=== PATIENT | male | born 1950 | race Caucasian/White ===

== ENCOUNTER 2018-04-19 14:46 | Emergency (ER) | payer MEDICARE, SELFPAY ==
[2018-04-19 14:48] VITALS: BP 156/91; PULSE 107; RESP 18; TEMP 37; O2SAT 97; BMI 33.7
[2018-04-19 15:40] LABS: Bedside Glucose 405 mg/dL (70-110)
[2018-04-19] MEDS: 0.9% Normal Saline 1,000 ML 1000 ML IV ×2 (15:59)
[2018-04-19 16:11] LABS: Absolute Lymphocyte Count 1.69 X10^3/ul (0.83-4.51); Absolute Neutrophil Count 4.8 X10^3/uL (2.0-7.7); Basophil# 0.02 X10^3/uL; Basophil% 0.3 % (0-1); Eosinophil# 0.05 X10^3/uL; Eosinophils% 0.7 % (0-5); Hematocrit 44.6 % (40-54); Hemoglobin 15.4 g/dl (13.0-16.5); Lymphocyte # 1.69 X10^3/ul (4.0); Lymphocyte % 22.8 % (19-41); Mean Corp Hgb Conc 34.5 g/gl (32-36); Mean Corpuscular Volume 92.7 fL (80-94); Mean Platelet Vol. 10.3 fl (6.2-12.0); Monocyte# 0.75 X10^3/uL; Monocyte% 10.1 % (0-10); Neutrophil # 4.84 X10^3/uL (2.7-7.7); Neutrophil % 65.2 % (47-70); Platelet Count 241 K/mm3 (150-450); RBC Distribution Width CV 12.4 % (11.6-14.6); RBC Distribution Width SD 41.9 fl (35.1-43.9); Red Blood Count 4.81 M/mm3 (4.6-6.2); White Blood Count 7.4 K/mm3 (4.4-11.0)
[2018-04-19 16:14] LABS: POSITIVE COUNT NO; POSITIVE DIFFERENTIAL NO; POSITIVE MORPHOLOGY NO
[2018-04-19 16:24] LABS: Anion Gap 9 (5-15); BUN 19 mg/dL (7-18); BUN/Creat Ratio 19.1 RATIO (10-20); Calcium,Total 9.8 mg/dL (8.5-10.1); Chloride 97 mmol/L (98-107); Creatinine, Serum 0.99 mg/dL (0.70-1.30); EST Glomerular Filtration Rate 80 mL/min (>60); Est Glom Filt Rate - Afr Amer 97 mL/min (>60); Glucose 395 mg/dL (74-106); Potassium 4.6 mmol/L (3.5-5.1); Sodium Level 133 mmol/L (136-145)
[2018-04-19 16:33] LABS: Hemoglobin A1c 13.3 % (4.2-6.3)
--- NOTE | 2018-04-19 16:56 | ED.VISSUMM ---
- ER Visit Summary Date of Service: 04/19/18 Chief Complaint: Elevated blood sugar History of Present Illness: The patient is a 68 M who presents with elevated blood sugar. He does note of the past couple of months he has had polyuria and polydipsia as well as some weight loss. He attributed this to the fact that he was working outside working on a porch during the summer. He was at a work physical today and they noted glucose in his urine so he had a fingerstick glucose which was 460. He was sent here for further evaluation. He denies any pain nausea vomiting diarrhea. Physical Examination: Afebrile heart rate 107 vitals otherwise unremarkable Neck supple Heart regular rhythm tachycardia Lungs are clear Abdomen soft nontender nondistended Alert Test Results: CBC normal. BMP notable for glucose 395 BUN 19 normal anion gap. Hemoglobin A1c 13.3. Emergency Department Course and Treatment: She was treated with IV fluids. I spoke to his primary care physician, Dr. Lazarus Bey iii. We will start the patient on metformin twice daily and have him follow-up in the office. He understands return for new or worsening symptoms. He was instructed on specific signs and symptoms to monitor for and was discharged home in good condition. Treatment Plan: [] Disposition: Discharge Impression: New onset diabetes Hyperglycemia This note was generated with [facility] dictation software. It may contain incorrect words, spelling, and punctuation that were not noted in review of the chart prior to signing ED Disposition - Plan for ED Patient: Chief Complaint: Hyperglycemia Referrals: Lazarus Bey III, MD [Primary Care Provider] -
--- NOTE | 2018-04-19 16:58 | ED.DEP ---
ED Disposition - Plan for ED Patient: Chief Complaint: Hyperglycemia Instructions: ED Hyperglycemia Diabetic Prescriptions: Metformin HCl 500 mg PO BID #60 tab Referrals: Lazarus Bey III, MD [Primary Care Provider] -
[2018-04-19 17:05] VITALS: BP 145/94; PULSE 85; RESP 18; O2SAT 100
== END 2018-04-19 17:06 | disposition home or self-care (01) ==
LOC: ED 15:52
PROVIDERS: Emergency Provider Emergency Medicine; Family Provider Family Medicine; PCP Family Medicine
DX: E11.65 Type 2 diabetes mellitus with hyperglycemia (principal)
CPT/HCPCS: 80048; 82962; 83036; 85025; 96360; 99283; J7030

== ENCOUNTER 2018-04-20 22:33 | Emergency (ER) | payer MEDICARE, SELFPAY ==
[2018-04-20 22:34] VITALS: BP 159/106; PULSE 91; RESP 16; TEMP 37.1; O2SAT 98; BMI 35.8
[2018-04-20 22:55] LABS: Bedside Glucose > 500 mg/dL (70-110)
--- NOTE | 2018-04-20 22:59 | ED.DCSUM_ITS ---
- ER Visit Summary Date of Service: 04/20/18 Chief Complaint: Elevated blood glucose History of Present Illness: The patient is a 68 M presents to the emergency department with elevated blood glucose. Patient is new onset diabetes. He was actually diagnosed yesterday. He was seen here in the emergency department. He was given fluids, and his care was discussed with his primary care physician , Dr. Gifford. The patient was placed on metformin, 500 mg twice a day. He states that he went to the pharmacy today and got set up with a glucometer. His initial blood sugar was 530. He took it again tonight and it is read high. He does admit to increased thirst and increased urination, but states he has had the symptoms for about a month. He was instructed by the pharmacy to come in for further evaluation. He denies abdominal pain. He denies any other systemic symptoms. Physical Examination: Vital signs reviewed General: Well-nourished, well-developed Head: Normocephalic, atraumatic Eyes: Pupils equal and reactive, extraocular muscles intact Neck, supple, no lymphadenopathy Heart: Regular rate and rhythm Respiratory: No distress, clear bilaterally Abdomen: Soft, nontender, nondistended, no peritoneal signs Back: Nontender Extremities: Nontender, no edema, no cords Skin: Normal color no rash Neuro: Alert and oriented, no focal or lateralizing deficits Test Results: [] Emergency Department Course and Treatment: The patient's blood sugar did read high at home. In triage, it was 532. IV was established. Patient was given fluids. I did discuss his care with Dr. Larson, on-call for Dr. Gifford, the patient arrival. She does feel that the patient's can require a more long- acting insulin with his metformin. He is going to be set up to be seen in the office tomorrow. Screening labs do confirm hyperglycemia, but there is no acute kidney injury. There is no anion gap. His ketones are negative. Patient was hydrated and given aliquots of subcutaneous insulin. Over time, we are able to get his blood sugar down to a more appropriate level. At this time , due to the patient is safe for discharge. He is comfortable this plan of care. He is going to be seen in the office today at the [facility] for medication titration. Patient will be discharged home. Treatment Plan: [] Disposition: Discharge Impression: 1. Hyperglycemia This note was generated with [employer] dictation software. It may contain incorrect words, spelling, and punctuation that were not noted in review of the chart prior to signing ED Disposition - Plan for ED Patient: Chief Complaint: Hyperglycemia Instructions: ED Hyperglycemia Diabetic Referrals: Lazarus Bey III, MD [Primary Care Provider] -
[2018-04-20 23:13] LABS: Absolute Lymphocyte Count 2.02 X10^3/ul (0.83-4.51); Absolute Neutrophil Count 3.1 X10^3/uL (2.0-7.7); Basophil# 0.03 X10^3/uL; Basophil% 0.5 % (0-1); Eosinophil# 0.07 X10^3/uL; Eosinophils% 1.2 % (0-5); Hematocrit 42.5 % (40-54); Hemoglobin 14.3 g/dl (13.0-16.5); Lymphocyte # 2.02 X10^3/ul (4.0); Lymphocyte % 33.6 % (19-41); Mean Corp Hgb Conc 33.6 g/gl (32-36); Mean Corpuscular Hgb 31.4 pg (27.0-32.0); Mean Corpuscular Volume 93.4 fL (80-94); Monocyte# 0.74 X10^3/uL; Monocyte% 12.3 % (0-10); Neutrophil # 3.07 X10^3/uL (2.7-7.7); Neutrophil % 51.1 % (47-70); POSITIVE COUNT NO; POSITIVE DIFFERENTIAL NO; POSITIVE MORPHOLOGY NO; Platelet Count 221 K/mm3 (150-450); RBC Distribution Width CV 12.5 % (11.6-14.6); RBC Distribution Width SD 42.1 fl (35.1-43.9); Red Blood Count 4.55 M/mm3 (4.6-6.2)
[2018-04-20] MEDS: 0.9% Normal Saline 1,000 ML 1000 ML IV ×2 (23:23→23:48)
[2018-04-20] MEDS: Insulin Lispro 100 UNIT/ML INSULN.PEN 14 UNIT SC (23:24)
[2018-04-20 23:27] VITALS: BP 139/80; PULSE 86; RESP 14; O2SAT 96
--- NOTE | 2018-04-20 23:43 | ED.RN ---
DR GUERRA NOTIFIED OF GLUCOSE RESULTS
[2018-04-20 23:44] LABS: Anion Gap 10 (5-15); BUN 25 mg/dL (7-18); BUN/Creat Ratio 21.6 RATIO (10-20); Calcium,Total 9.2 mg/dL (8.5-10.1); Chloride 96 mmol/L (98-107); Creatinine, Serum 1.16 mg/dL (0.70-1.30); EST Glomerular Filtration Rate 67 mL/min (>60); Est Glom Filt Rate - Afr Amer 81 mL/min (>60); Estimated Creatinine Clearance 62.64 ml/min; Glucose 542 mg/dL (74-106); Potassium 4.5 mmol/L (3.5-5.1); Sodium Level 132 mmol/L (136-145)
[2018-04-21 00:16] LABS: Bedside Glucose 438 mg/dL (70-110)
[2018-04-21] MEDS: Insulin Lispro 100 UNIT/ML INSULN.PEN 20 UNIT SC ×2 (00:24→01:45)
[2018-04-21 00:26] VITALS: BP 141/82; PULSE 88; RESP 22; O2SAT 97
[2018-04-21 01:26] VITALS: BP 131/80; PULSE 78; RESP 21; O2SAT 97
[2018-04-21 01:31] LABS: Bedside Glucose 345 mg/dL (70-110)
[2018-04-21 01:46] VITALS: BP 131/80; PULSE 83; RESP 26; O2SAT 96
[2018-04-21 02:36] LABS: Bedside Glucose 192 mg/dL (70-110)
[2018-04-21 02:50] VITALS: BP 141/84; PULSE 81; RESP 15; O2SAT 96
== END 2018-04-21 02:57 | disposition home or self-care (01) ==
LOC: ED 22:58
PROVIDERS: Emergency Provider Emergency Medicine; Family Provider Family Medicine; PCP Family Medicine
DX: E11.65 Type 2 diabetes mellitus with hyperglycemia (principal)
CPT/HCPCS: 80048; 82009; 82962; 85025; 99284; J7030

== ENCOUNTER 2018-06-01 07:37 | Emergency (ER) | payer MEDICARE, SELFPAY ==
[2018-06-01 07:38] VITALS: BP 149/87; PULSE 96; RESP 18; TEMP 36.6; O2SAT 100; BMI 33.5
[2018-06-01] MEDS: MethylPREDNISolone 125 MG/2 ML Vial IV (08:08)
--- NOTE | 2018-06-01 10:57 | ED.VISSUMM ---
- ER Visit Summary Date of Service: 06/01/18 Chief Complaint: [Allergic reaction to bee sting] History of Present Illness: The patient is a 68 M [presents the emergency department after being stung by a hornet on his right forearm. Patient states that he was just going out to get the mail when he was stung. Patient states she has had severe allergies in the past and does have an EpiPen but his was . Patient denies any shortness of breath or difficulty swallowing at this time. Patient did take 2 Benadryl tablets prior to coming the emergency department. Patient does complain of an itchy rash currently.] Physical Examination: [HEENT-PERRLA, EOMI. Cranial nerves II through XII grossly intact. TMs clear. Mucous membranes moist. No adenopathy. No angioedema noted of the tongue or oropharynx. No stridor. Cardiovascular-regular rate and rhythm without murmur or ectopy Lungs-clear to auscultation, chest wall stable without crepitus or subcu emphysema Abdomen-normoactive bowel sounds, soft, nontender, no rebound or rigidity, no peritoneal signs. Skin exam-patient has a erythematous blotchy rash that is on the upper extremities as well as the trunk and lower extremities. Extremities-intact ?4, normal range of motion, normal pulses, atraumatic] Test Results: [None indicated] Emergency Department Course and Treatment: [Patient was given Solu-Medrol 125 mg IV as well as Pepcid 40 mg IV. Patient was observed for 3-1/2 hours in the department and had improvement of his symptoms.] Treatment Plan: [Patient will be given a prescription for prednisone and EpiPen. Patient advised to return if increased difficulty breathing or difficulty swallowing, or condition should worsen in any way.] Disposition: [Discharged home in stable condition] Impression: [Allergic reaction to bee sting] This note was generated with [employer] dictation software. It may contain incorrect words, spelling, and punctuation that were not noted in review of the chart prior to signing ED Disposition - Plan for ED Patient: Chief Complaint: Allergic Reaction Referrals: Lazarus Bey III, MD [Primary Care Provider] -
--- NOTE | 2018-06-01 10:59 | ED.DEP ---
ED Disposition - Plan for ED Patient: Chief Complaint: Allergic Reaction Instructions: ED Bite Sting Insect Gen Allergic React Prescriptions: Epinephrine [Epi Pen] 0.3 mg IM X1 #1 syringe Prednisone [Deltasone] 20 mg PO BID #6 tab Referrals: Lazarus Bey III, MD [Primary Care Provider] - As Needed
[2018-06-01 11:19] VITALS: BP 125/74; PULSE 83; RESP 16; O2SAT 97
== END 2018-06-01 11:21 | disposition home or self-care (01) ==
PROVIDERS: Emergency Provider Emergency Medicine; Family Provider Family Medicine; PCP Family Medicine
DX: T63.441A Toxic effect of venom of bees, accidental (unintentional), initial encounter (principal); Y92.9 Unspecified place or not applicable; E11.9 Type 2 diabetes mellitus without complications
CPT/HCPCS: 99284; A4216; J3490

== ENCOUNTER 2019-06-13 18:36 | Emergency (ER) | payer MEDICARE, SELFPAY ==
[2019-06-13 18:37] VITALS: BP 127/82; PULSE 105; RESP 18; TEMP 36.1; O2SAT 95
[2019-06-13 18:39] VITALS: BP 127/82; PULSE 105; RESP 18; TEMP 36.1; O2SAT 95; BMI 35.9
[2019-06-13 19:27] LABS: Absolute Lymphocyte Count 0.93 X10^3/uL (0.83-4.51); Absolute Neutrophil Count 12.4 X10^3/uL (2.0-7.7); Basophil# 0.03 X10^3/uL; Basophil% 0.2 % (0-1); Eosinophil# 0.23 X10^3/uL; Eosinophils% 1.5 % (0-5); Hematocrit 36.5 % (40-54); Lymphocyte # 0.93 X10^3/ul (4.0); Mean Corp Hgb Conc 32.9 g/dL (32-36); Mean Corpuscular Hgb 30.1 pg (27.0-32.0); Mean Corpuscular Volume 91.5 fL (80-94); Mean Platelet Vol. 9.5 fl (6.2-12.0); Monocyte# 1.77 X10^3/uL; Monocyte% 11.4 % (0-10); NRBC Flagged by Analyzer 0 % (0-5); Neutrophil % 79.9 % (47-70); POSITIVE DIFFERENTIAL YES; Platelet Count 313 K/mm3 (150-450); RBC Distribution Width CV 11.8 % (11.6-14.6); RBC Distribution Width SD 39.7 fl (35.1-43.9); Red Blood Count 3.99 M/mm3 (4.6-6.2); White Blood Count 15.5 K/mm3 (4.4-11.0)
[2019-06-13 19:35] LABS: Differential Indicated SCAN CRITERIA MET
[2019-06-13 20:00] LABS: Anion Gap 7 (5-15); BUN 61 mg/dL (7-18); BUN/Creat Ratio 29.6 RATIO (10-20); Calcium,Total 9.1 mg/dL (8.5-10.1); Chloride 100 mmol/L (98-107); Creatinine, Serum 2.06 mg/dL (0.70-1.30); EST Glomerular Filtration Rate 34 mL/min (>60); Est Glom Filt Rate - Afr Amer 42 mL/min (>60); Estimated Creatinine Clearance 35.93 ml/min; Glucose 151 mg/dL (74-106); Potassium 3.9 mmol/L (3.5-5.1); Sodium Level 135 mmol/L (136-145)
[2019-06-13 20:10] LABS: Platelet Estimate ADEQUATE (ADEQ)
[2019-06-13 20:11] LABS: Anisocytosis RARE; Macrocytosis RARE; Red Cell Morphology N CHROM NORMAL (NORM C&C)
[2019-06-13] MEDS: 0.9% Normal Saline 1,000 ML 1000 ML IV ×2 (21:06→22:56)
--- NOTE | 2019-06-13 21:09 | ED.DCSUM_ITS ---
History of Present Illness Chief Complaint: Nausea/Vomiting Informant: Patient, Significant Other Onset: Days - Onset June 11 Context: Sudden Onset Timing: Intermittent Quality: Nausea and vomiting and Thursday and diarrhea Thursday Location: GI Current Severity: Mild Maximum Severity: Severe Worsened by: Nothing Relieved by: Nothing Associated Symptoms: Thirst, dry mouth, documented fever and orthostatic Narrative: She is an elderly male with history of type 2 diabetes hypertension who was sent to the emergency department because of persistent nausea and vomiting and Thursday. Because he is diabetic and has symptoms concerning for dehydration he was sent for further evaluation. He states he becomes lightheaded if he stands rapidly. He has not had a fever since Thursday. He had no vomiting since Thursday. Is had no diarrhea since Thursday. He states he has had a poor appetite. He denies headache. He denies visual, ocular auditory symptoms. He denies cardiac respiratory symptoms. He does report dark-colored urine and urinating less. Prior similar symptoms: No Recent Illness/Hospitalization: No - Past Medical History (1) History of hypertension Status: Acute (2) History of diabetes mellitus, type II Status: Acute Past Medical History - Allergies and Home Meds Allergies/Adverse Reactions: Allergies bee venom protein (honey bee) Allergy (Verified 06/13/19 20:29) Anaphylaxis Primary Care Physician: Lazarus Bey III, MD [Primary Care Provider] - Prior records reviewed: Yes Surgical History: no surgical history Lives: Spouse/ Significant Other Smoking Status: Former smoker Alcohol: Rare Drugs: None Review of Systems General: Reports: Chills, Fever, Malaise. Denies: Sweats, Weight loss Eyes: Denies: Visual changes - bilaterally, Blurred Vision - bilaterally, Diplopia ENT: Denies: Bilateral ear pain, Rhinorrhea, Sore throat Cardiovascular: Denies: Chest pain, Palpitations Respiratory: Denies: Dyspnea, Cough, Dyspnea on exertion Gastrointestinal: Reports: Abdominal pain, Nausea, Vomiting, Diarrhea. Denies: Constipation, Melena, Hematochezia, -, - Genitourinary: Denies: Dysuria, Hematuria, Frequency Musculoskeletal: Reports: Myalgias, Arthralgias. Denies: Neck pain, Back pain, Swelling, Extremity Pain, -, - Skin: Denies: Rash, Wounds Neurological: Reports: Weakness. Denies: Headache, Parasthesia, Numbness, -, - Hematologic: Denies: Easy bruising, Easy bleeding Allergy: Denies: Uticaria, Swelling of the mouth Physical Exam Vital Signs/Narrative: Vital Signs Temp Pulse Resp BP Pulse Ox 06/13/19 18:39 96.9 F L 105 H 18 127/82 H 95 06/13/19 18:37 96.9 F L 105 H 18 127/82 H 95 Inital Vital Signs reviewed: Yes General: Well nourished, Well developed, No Acute Distress Head: Normocephalic, Atraumatic Eyes: Perrl, EOMI ENT: No rhinorrhea, Dry mucous membranes Neck: Supple, Nontender, No lymphadenopathy, No JVD Cardiovascular: Regular rhythm, No murmurs, Normal S1, Normal S2, Tachycardia Respiratory: No distress, CTA bilaterally, Chest nontender Abdomen: Soft, Nontender, Nondistended, Normal bowel sounds Back: Nontender, Normal Inspection. Negative for: CVA tenderness Extremities: Nontender, No edema Skin: Normal color, No rash Neurological: Alert, Oriented x3, Cranial nerves II-XII grossly intact, Normal Strength, Normal Sensation, Normal Gait Psychological: Normal affect, Normal Mood Diagnostic/Tx/Re-eval Laboratory Results 06/13/19 06/13/19 19:00 19:00 WBC 15.5 H RBC 3.99 L Hgb 12.0 L Hct 36.5 L MCV 91.5 MCH 30.1 MCHC 32.9 RDW Std Deviation 39.7 RDW Coeff of Michael 11.8 Plt Count 313 MPV 9.5 Immature Gran % (Auto) 1.000 H Neut % (Auto) 79.9 H Lymph % (Auto) 6.0 L [place] % (Auto) 11.4 H Eos % (Auto) 1.5 Baso % (Auto) 0.2 Absolute Neuts (auto) 12.4 H Absolute Lymphs (auto) 0.93 Nucleated RBC % 0 Differential Comment SEE COMMENT Diff Path Review May foll Platelet Estimate ADEQUATE RBC Morphology N CHROM Anisocytosis RARE Macrocytosis RARE Sodium 135 L Potassium 3.9 Chloride 100 Carbon Dioxide 28.0 Anion Gap 7 BUN 61 H Creatinine 2.06 H Estim Creat Clear Calc 35.93 Est GFR (MDRD) Af Amer 42 L Est GFR (MDRD) Non-Af 34 L BUN/Creatinine Ratio 29.6 H Glucose 151 H Calcium 9.1 Patient's creatinine has increased from 1-2.06. Hemoglobin slightly elevated consistent with hemoconcentration. Blood sugar is elevated 151 and type II diabetic. - Medical Decision Making Clinically and symptoms are consistent with dehydration. Will obtain basic medical panel to assess for acute kidney injury. UA was obtained to assess specific gravity and to determine if he has hematuria proteinuria since he reports no history of renal problems and prior creatinine normal. He will receive 1 L of normal saline wide open. She was reassessed at 2245. He has not urinated and he received a second liter of fluid. Calls in place to Dr. Joni Downing is on-call for Dr. Lazarus Bey. Plan is discharge to home when she urinates and repeat BUN and creatinine in 3 to 4 days. ED Disposition - Plan for ED Patient: Disposition: Home or Assisted Living Diagnosis: Acute kidney injury, Hyperglycemia due to type 2 diabetes mellitus, Abdominal pain, vomiting, and diarrhea Instructions: VOMITING AND DIARRHEA, Nonspecific (Adult), Renal Insufficiency Referrals: Lazarus Bey III, MD [Primary Care Provider] - 3-5 Days Additional Instructions: Call Dr. Lazarus Bey's office in the morning to be seen in 3 to 4 days for repeat blood work.
[2019-06-13 21:23] LABS: Color, Urine Yellow (Yellow); Glucose, Dipstick Normal (Normal); Ketone-Dipstick Negative (Negative); Leukocyte Esterase-Dipstick Negative /ul (Negative); Nitrite-Dipstick Negative (Negative); Occult Blood-Urine 10 /ul (Negative); Protein-Dipstick 30 mg/dl (Negative); Urine Bilirubin Dipstick Negative (Negative); Urine Clarity Clear (Clear); Urine Urobilinogen 1 mg/dl (Normal)
[2019-06-13 22:55] VITALS: RESP 18
[2019-06-14 00:20] VITALS: PULSE 87; RESP 16; O2SAT 96
[2019-06-14 13:10] LABS: Pathologist Review Reviewed
== END 2019-06-14 00:21 | disposition home or self-care (01) ==
PROVIDERS: Emergency Provider Emergency Medicine; Family Provider Family Medicine; PCP Family Medicine
DX: N17.9 Acute kidney failure, unspecified (principal); I10 Essential (primary) hypertension; E11.65 Type 2 diabetes mellitus with hyperglycemia; Z87.891 Personal history of nicotine dependence
CPT/HCPCS: 80048; 81002; 85025; 96360; 96361; 99284; J7030; A4216

== ENCOUNTER 2020-02-07 07:30 | Observation (INO) | payer MEDICARE, SELFPAY ==
[2020-02-07] VITALS (15 sets, daily range): BP systolic 127–158; BP diastolic 52–136; PULSE 84–121; RESP 16–20; TEMP 36.4–37.2; O2SAT 94–100; BMI 37.3; BMI 37.2
--- NOTE | 2020-02-07 07:36 | ED.RN ---
pt moved to room 5. triage assessment completed after pt taken to room
--- NOTE | 2020-02-07 07:37 | US_ITS ---
STUDY: ABDOMINAL ULTRASOUND - RIGHT UPPER QUADRANT REASON FOR VISIT: Male, 70 years old CHOLECYSTITIS PT NOT NPO - CEREAL AND MILK 2 HOURS AGO TECHNIQUE: Ultrasound evaluation of the right upper quadrant was performed with real-time and static childs-scale imaging. TECHNICAL QUALITY: Adequate. COMPARISON: None. FINDINGS: Liver: The liver measures 17.0 cm. There is normal echogenicity of the liver. The bile ducts are within normal limits. There is hepatic color flow. The direction of portal flow is hepatopetal. There is no demonstrated mass lesion. Gallbladder: Normal distended gallbladder. The gallbladder wall is thickened and measures 3.7 mm. There is a negative sonographic Bloom''s sign. There is no pericholecystic fluid. There is a solitary echogenic gallstone within the gallbladder. It measures 2 cm. Sludge is also seen within the gallbladder lumen. Common Bile Duct (C.B.D.): The common bile duct measures 2.9 mm. Pancreas: There is nonvisualization of the pancreas due to overlying bowel gas. Right Kidney: Normal size of the right kidney. The right kidney measures 12 cm x 6.5 cm x 5.1 cm. Normal renal cortex. The right cortex measures 1.6 cm. There is no demonstrated renal mass or cyst. There is no right hydronephrosis. US/Gallbladder IMPRESSION: Solitary gallstone. Sludge is seen within the gallbladder lumen. Thickened gallbladder wall. Electronically Signed: Gustavo Temple, at 8:56 EDT , Service support ,
[2020-02-07] MEDS: Ondansetron 4 MG/2 ML Vial IV (07:57)
[2020-02-07 07:58] LABS: Absolute Lymphocyte Count 0.97 X10^3/uL (0.83-4.51); Absolute Neutrophil Count 10.2 X10^3/uL (2.0-7.7); Basophil# 0.04 X10^3/uL; Basophil% 0.3 % (0-1); Eosinophil# 0.02 X10^3/uL; Eosinophils% 0.2 % (0-5); Hematocrit 40.3 % (40-54); Hemoglobin 13.5 g/dL (13.0-16.5); Lymphocyte # 0.97 X10^3/ul (4.0); Lymphocyte % 7.7 % (19-41); Mean Corp Hgb Conc 33.5 g/dL (32-36); Mean Corpuscular Volume 92.4 fL (80-94); Mean Platelet Vol. 9.2 fl (6.2-12.0); Monocyte% 10.3 % (0-10); NRBC Flagged by Analyzer 0 % (0-5); Neutrophil # 10.18 X10^3/uL (2.7-7.7); Neutrophil % 80.9 % (47-70); Platelet Count 260 K/mm3 (150-450); RBC Distribution Width CV 11.4 % (11.6-14.6); RBC Distribution Width SD 39.1 fl (35.1-43.9); Red Blood Count 4.36 M/mm3 (4.6-6.2); White Blood Count 12.6 K/mm3 (4.4-11.0)
[2020-02-07 07:58] LABS: Bacteria 0 SEEN /hpf (None Seen); Mucous, Urine 0 SEEN /hpf (<or=2+); Red Blood Cells-Urine 0 SEEN /hpf (0-5); Squamous Epithelial Cells - UA 0 SEEN /hpf (0-5); White Blood Cells 0 SEEN /hpf (0-5)
[2020-02-07 08:00] LABS: Color, Urine Yellow (Yellow); Glucose, Dipstick 250 mg/dl (Normal); Ketone-Dipstick Negative (Negative); Leukocyte Esterase-Dipstick Negative /ul (Negative); Nitrite-Dipstick Negative (Negative); Occult Blood-Urine 10 /ul (Negative); Protein-Dipstick Negative (Negative); Specific Gravity, Urine 1.015 (1.002-1.030); Urine Bilirubin Dipstick Negative (Negative); Urine Clarity Clear (Clear); Urine Urobilinogen Normal (Normal)
--- NOTE | 2020-02-07 08:01 | ED.VIS.GEN ---
History of Present Illness Chief Complaint: Chest Pain Informant: Patient Onset: Yesterday Context: Gradual Onset Timing: Continuous Current Severity: Moderate Maximum Severity: Moderate Narrative: The patient is a 70-year-old male with medical history significant for hypertension hyperlipidemia the presents to the emergency department with midepigastric pain. The patient states that started last night. He states that he had tightness across his upper abdomen that was bandlike. He states it was not chest pain, but more in his abdomen. He states he had a low-grade fever of 100.6. He states he took some Tums with little relief. He states it seems like the pain is migrated more towards his right upper quadrant. When he takes a deep breath, he does have pain. He states he also feels bloated. Up until last night, he has been in his normal state of health. He denies any exertional pain, exertional dyspnea, orthopnea, or weight gain. He has no history of prior abdominal surgeries. Prior similar symptoms: No Recent Illness/Hospitalization: No Past Medical History - Allergies and Home Meds Allergies/Adverse Reactions: Allergies bee venom protein (honey bee) Allergy (Verified 02/07/20 07:37) Anaphylaxis Primary Care Physician: Kris Bey III, MD [Primary Care Provider] - Prior records reviewed: Yes Past Medical History: - - Diabetes, hypertension Surgical History: no surgical history Smoking Status: Former smoker Review of Systems General: Reports: Fever. Denies: Chills, Sweats Eyes: Denies: Visual changes - bilaterally, Diplopia ENT: Denies: Rhinorrhea, Sore throat Cardiovascular: Reports: Chest pain. Denies: Palpitations Respiratory: Reports: Dyspnea. Denies: Cough, Dyspnea on exertion Gastrointestinal: Reports: Abdominal pain, Nausea. Denies: Vomiting, Diarrhea, Melena, Hematochezia Genitourinary: Denies: Dysuria, Hematuria, Frequency Musculoskeletal: Denies: Back pain, Extremity Pain Skin: Denies: Rash, Wounds Neurological: Denies: Headache, Weakness, Numbness Physical Exam Vital Signs/Narrative: Vital Signs Temp Pulse Resp BP Pulse Ox 02/07/20 07:34 98.6 F 121 H 20 H 155/136 H 99 Inital Vital Signs reviewed: Yes General: Well nourished, Well developed, No Acute Distress Head: Normocephalic, Atraumatic Eyes: Perrl, EOMI ENT: Moist mucous membranes, No rhinorrhea Neck: Supple, Nontender Cardiovascular: Regular rate, Regular rhythm, No murmurs Respiratory: No distress, CTA bilaterally, Chest nontender Abdomen: Soft, Nondistended, Normal bowel sounds, Tender. Negative for: Guarding, Rebound tenderness Back: Nontender, Normal Inspection Extremities: Nontender, No edema Skin: Normal color, No rash Neurological: Alert, Oriented x3, Cranial nerves II-XII grossly intact, Normal Strength, Normal Sensation Psychological: Normal affect, Normal Mood Diagnostic/Tx/Re-eval Clinical Impression(s) from Imaging Studies Gallbladder Ultrasound 02/07/20 07:37 IMPRESSION: Solitary gallstone. Sludge is seen within the gallbladder lumen. Thickened gallbladder wall. Electronically Signed: Gustavo Temple, at 8:56 EDT , Service support , Abnormal Lab Results 02/07/20 02/07/20 02/07/20 07:50 07:50 07:52 WBC 12.6 H RBC 4.36 L Hgb 13.5 Hct 40.3 MCV 92.4 MCH 31.0 MCHC 33.5 RDW Std Deviation 39.1 RDW Coeff of Michael 11.4 L Plt Count 260 MPV 9.2 Immature Gran % (Auto) 0.600 Neut % (Auto) 80.9 H Lymph % (Auto) 7.7 L [place] % (Auto) 10.3 H Eos % (Auto) 0.2 Baso % (Auto) 0.3 Absolute Neuts (auto) 10.2 H Absolute Lymphs (auto) 0.97 Nucleated RBC % 0 Sodium 135 L Potassium 4.2 Chloride 101 Carbon Dioxide 28.0 Anion Gap 6 BUN 27 H Creatinine 1.51 H Estim Creat Clear Calc 48.34 Est GFR (MDRD) Af Amer 59 L Est GFR (MDRD) Non-Af 49 L BUN/Creatinine Ratio 17.9 Glucose 218 H Calcium 9.7 Total Bilirubin 1.30 H AST 18 ALT 35 Alkaline Phosphatase 131 H Total Protein 7.6 Albumin 3.8 Globulin 3.8 Albumin/Globulin Ratio 1.0 Lipase 126 Urine Color Yellow Urine Clarity Clear Urine pH 6.0 Ur Specific [place] 1.015 Urine Protein Negative Urine Glucose (UA) 250 H Urine Ketones Negative Urine Occult Blood 10 H Urine Nitrite Negative Urine Bilirubin Negative Urine Urobilinogen Normal Ur Leukocyte Esterase Negative Urine RBC 0 SEEN Urine WBC 0 SEEN Ur Squamous Epith Cells 0 SEEN Urine Bacteria 0 SEEN Urine Mucus 0 SEEN - Rhythm Strip Rhythm Strip: Sinus Rhythm Rate: 95 Ectopy: PVC(s) - EKG Initial EKG Interpretation: Sinus Rhythm, No Acute Injury Pattern Prior: Unchanged - Medical Decision Making The patient presents to the emergency department with bandlike abdominal pain that started last night that has now migrated towards his right upper quadrant. He had a fever of 100.6. He denies any kris chest pain. States when he moves, bends, or breathes, he does get pain mostly on the right side. He does have a positive Bloom sign on examination. I was concerned for cholecystitis. Labs were obtained. The patient does have a leukocytosis. Bilirubin is mildly elevated but no significant obstructive pattern on his LFTs. Patient underwent ultrasound. There is no pericholecystic fluid, but there is increased gallbladder wall thickening and significant gallbladder sludge. The patient declined analgesics. With the symptoms, patient was discussed with surgery. He was covered with broad-spectrum antibiotics and will be admitted for likely cholecystectomy. Impression 1. Abdominal pain 2. Acute cholecystitis 3. Leukocytosis ED Disposition - Plan for ED Patient: Referrals: Kris Bey III, MD [Primary Care Provider] -
[2020-02-07 08:11] LABS: AST(SGOT) 18 U/L (15-37); Alanine Aminotransfer ALT/SGPT 35 U/L (16-61); Albumin, Serum 3.8 g/dL (3.2-5.0); Alkaline Phosphatase 131 U/L (45-117); Anion Gap 6 (5-15); BUN 27 mg/dL (7-18); BUN/Creat Ratio 17.9 RATIO (10-20); Calcium,Total 9.7 mg/dL (8.5-10.1); Chloride 101 mmol/L (98-107); Creatinine, Serum 1.51 mg/dL (0.70-1.30); EST Glomerular Filtration Rate 49 mL/min (>60); Est Glom Filt Rate - Afr Amer 59 mL/min (>60); Estimated Creatinine Clearance 48.34 ml/min; Globulin 3.8 g/dL (2.2-4.2); Glucose 218 mg/dL (74-106); Lipase 126 U/L (73-393); Potassium 4.2 mmol/L (3.5-5.1); Protein, Total 7.6 g/dL (6.4-8.2); Sodium Level 135 mmol/L (136-145)
--- NOTE | 2020-02-07 09:00 | RAD_ITS ---
STUDY: X-RAY CHEST REASON FOR EXAM: Male, 70 years old. PRE OP, CHEST ABD PAIN TECHNIQUE: Single AP portable view of the chest. COMPARISON: None. FINDINGS: EKG electrodes are seen. The lungs are clear and expanded. There is no demonstrated pleural abnormality. Normal size heart. Normal mediastinum and toya. Normal visualized pulmonary arteries. Normal visualized aortic arch and descending thoracic aorta. There are diffuse degenerative changes of the visualized thoracic spine. Normal visualized ribs, clavicles, and shoulders. There is no demonstrated abnormality of the visualized soft tissue structures of the upper abdomen. RAD/Chest 1 View (Portable) IMPRESSION: No acute abnormality is seen. Electronically Signed: Gustavo Temple, at 9:31 EDT , Service support ,
--- NOTE | 2020-02-07 10:20 | PCM.HP.STD ---
History of Present Illness Date of Admission: 02/07/20 The patient is a 70 year old M presented to the ER due to right upper quadrant pain starting last night. Patient states did initially get a little better but has not completely gone away. Patient did have some cereal and milk at 6 AM this morning. Last night the pain came on about 2 3 hours after having spaghetti. Patient denies any previous history of similar pain did try to take some Tums. Patient denies history of reflux or heartburn. Patient has denied needing pain meds in the ER ultrasound was done which showed a thickened gallbladder wall, no pericholecystic fluid, 2 cm gallstones, common bile duct is 2.9 mm, white blood count was 12 patient is receiving Zosyn IV in the ER. COVID test for preoperative testing is pending. Patient denies any abdominal surgeries in the past. Does have past medical history for diabetes, hyperlipidemia, hypertension, history of thyroid cancer status post thyroidectomy. Past Medical History Allergies bee venom protein (honey bee) Allergy (Verified 02/07/20 07:37) Anaphylaxis Home Medications: Ambulatory Orders Medication Instructions Recorded Levothyroxine Sodium 175 mcg PO DAILY 04/19/18 Epi Pen (for allergic rxn) [Epi 0.3 mg IM X1 #1 syringe 06/01/18 Pen] Atorvastatin Calcium 40 mg PO DAILY 06/13/19 Lisinopril [Zestril] 10 mg PO DAILY 06/13/19 Metformin HCl 1,000 mg PO BID 06/13/19 Sildenafil Citrate [Viagra] 50 mg PO PRN PRN 02/07/20 Surgical History: - - Left thyroid lobectomy followed by right thyroid lobectomy due to thyroid cancer, additional neck excision for residual cancer. Psychiatric History: No pertinent psych hx Smoking Status: Former smoker - *Family History Maternal History Items: No pertinent history Review of Systems Constitutional: Reports: Fever - Patient states he had a temperature of 100.6 Cardiovascular: Denies: Chest Pain Respiratory: Denies: Shortness of Breath Gastrointestinal: Reports: Abdominal Pain, Nausea. Denies: Vomiting VTE Information - Inpt Only VTE Present on Admission: Yes VTE Mechan Device Prophylaxis: SCD's - Physical Exam Vitals/I&O's: Vital Signs Temp Pulse Resp BP Pulse Ox 98.6 F 105 H 18 141/76 H 98 02/07/20 07:34 02/07/20 09:15 02/07/20 09:15 02/07/20 09:15 02/07/20 09:15 Oxygen Delivery Method Room Air Weight: 260 lb Body Mass Index (BMI) 37.3 Finger Stick Blood Glucose 192 Intake and Output for Last 24 Hours 02/05/20 02/06/20 02/07/20 23:59 23:59 23:59 Intake Total 500 / 500 Balance 500 / 500 General: Alert, Oriented x3, Cooperative, No apparent distress HEENT: Atraumatic Lungs: Normal air movement Cardiovascular: Regular rate Abdomen: Soft, Non-Distended, Tender - Right upper quadrant and epigastric, no peritoneal signs, negative Bloom sign Extremities: No clubbing, No cyanosis, No edema Neurological: Cranial nerves II-XII grossly intact Psych/Mental Status: Normal Affect Laboratory Results 02/07/20 07:50: WBC 12.6 H, RBC 4.36 L, Hgb 13.5, Hct 40.3, MCV 92.4, MCH 31.0, MCHC 33.5, RDW Std Deviation 39.1, RDW Coeff of Michael 11.4 L, Plt Count 260, MPV 9.2, Immature Gran % (Auto) 0.600, Neut % (Auto) 80.9 H, Lymph % (Auto) 7.7 L, Y[place]y % (Auto) 10.3 H, Eos % (Auto) 0.2, Baso % (Auto) 0.3, Absolute Neuts (auto) 10.2 H, Absolute Lymphs (auto) 0.97, Nucleated RBC % 0 02/07/20 07:50: Sodium 135 L, Potassium 4.2, Chloride 101, Carbon Dioxide 28.0, Anion Gap 6, BUN 27 H, Creatinine 1.51 H, Estim Creat Clear Calc 48.34, Est GFR (MDRD) Af Amer 59 L, Est GFR (MDRD) Non-Af 49 L, BUN/Creatinine Ratio 17.9, Glucose 218 H, Calcium 9.7, Total Bilirubin 1.30 H, AST 18, ALT 35, Alkaline Phosphatase 131 H, Total Protein 7.6, Albumin 3.8, Globulin 3.8, Albumin/Globulin Ratio 1.0, Lipase 126 02/07/20 07:52: Urine Color Yellow, Urine Clarity Clear, Urine pH 6.0, Ur Specific Roberts 1.015, Urine Protein Negative, Urine Glucose (UA) 250 H, Urine Ketones Negative, Urine Occult Blood 10 H, Urine Nitrite Negative, Urine Bilirubin Negative, Urine Urobilinogen Normal, Ur Leukocyte Esterase Negative, Urine RBC 0 SEEN, Urine WBC 0 SEEN, Ur Squamous Epith Cells 0 SEEN, Urine Bacteria 0 SEEN, Urine Mucus 0 SEEN 02/07/20 09:00: COVID-19 (SAUL) Cancelled Assessment/Plan All Active Problems History of hypertension (Acute) History of diabetes mellitus, type II (Acute) 70-year-old male with acute calculus cholecystitis Patient did get Zosyn IV in the ER. Reviewed the anatomy with the patient and discussed the procedure: laparoscopic cholecystectomy with cholangiograms, possible open. Review risks including but not limited to bleeding, infection, hernia, bile leak, retained gallstones requiring another procedure ERCP- Endoscopic Retrograde Cholangiopancreatography, injury to another organ (bile ducts, common bile duct, small bowel, etc.) may require transfer to tertiary care facility. And conversion to an open procedure. All questions were answered patient was agreeable to proceed. Kelsey Peters M.D. Pager: [phone] [facility] [address] [place] [address], [address] [place] [address] Office: [phone] Essential Procedure Criteria Procedure Essential: Yes Criteria Note: On 12/13/2019 the [place] Department of Health ([facility]) Public Order signed by [facility] Director Antoinette Barrera M.D., regarding the Management of Non-Essential Surgeries and Procedures for the purpose of preserving Personal Protective Equipment (PPE) and critical hospital capacity and resources within [place] went into effect as of 12/14/2019 at 5:00PM. According to the [facility] Public Order: This action will remain in full force and effect until the State of Emergency declared by the Governor no longer exists or the Director of the [facility] rescinds or modifies this Order.. This [facility] order stated all non-essential or elective surgeries and procedures that utilize PPE should be delayed unless there is undue risk to the current or future health of a patient. After reviewing the aforementioned [facility] Public Order and the patients clinical case, I have determined that the scheduled procedure meets the criteria to go forward. Risk to Patient if Procedure Delayed: Risk of rapidly worsening to severe symptoms if delayed
--- NOTE | 2020-02-07 10:45 | NURSING ---
MED SURG AFTER OR ROBOTHAM CHOLECYSTITIS
[2020-02-07] MEDS: Lactated Ringers 1,000 ML 100 ML IV (12:55)
[2020-02-07 13:00] LABS: Bedside Glucose 90 mg/dL (70-110)
--- NOTE | 2020-02-07 13:17 | RAD_ITS ---
STUDY: INTRAOPERATIVE CHOLANGIOGRAM. REASON FOR EXAM: Male, 70 years old. LAP LANDRY IN OR -- 1 CINE RUN containing 52 images, 9.7 SEC, 10.11mGy FLUOROSCOPY TIME (if supplied): ( 9.7 seconds ) minutes/seconds TECHNIQUE: Intraoperative cavagram was performed by the surgeon. Imaging was submitted. COMPARISON: None. FINDINGS: The intrahepatic biliary ducts are unremarkable. The common bile duct is not dilated. There is free flow of contrast into the duodenum. No intraluminal filling defect is seen. RAD/Cholangiogram/ O R,Initial IMPRESSION: Unremarkable intraoperative cholangiogram. Electronically Signed: Gustavo Temple, at 14:56 EDT , Service support ,
--- NOTE | 2020-02-07 15:25 | PCM.OPRPT ---
Report of Operation Date of Procedure: 02/07/20 Pre-Operative Diagnosis: Acute calculus cholecystitis Post-Operative Diagnosis: Same Surgery/Procedure Performed:: Laparoscopic cholecystectomy with cholangiograms gas meter repairer: George Lofton Type of Anesthesia:: General/Supplemental Anesthesiologist: Handy Mast Special Medications: Zosyn 3.375 g IV x1 Specimen's removed: Gallbladder and stone Estimated Blood Loss (mL): 30 cc Fluids Replaced: 1800 cc Description of Procedure: Indications this is a 70 year-old male who developed abdominal pain/nausea/vomiting and on workup was found to have acute calculus cholecystitis, with a normal common bile duct. Laparoscopic cholecystectomy was elected. Description procedure: The patient was placed on operating table in supine position. General Anesthesia was induced. A timeout was completed verifying correct patient, procedure, site, position and special equipment prior to beginning procedure. The abdomen was prepped and draped in usual sterile fashion. An incision was made in the natural skin line above the umbilicus. The fascia was elevated and incised. The peritoneum was elevated and incised. Entry into the peritoneum was confirmed visually and no bowel was noted in the vicinity of the incision. Vicente trocar was placed. The abdomen was insufflated with carbon dioxide to a pressure of 12-15 mmHg. Patient tolerated insufflation well. The laparoscope was then inserted and abdomen inspected. No injuries from initial trocar placement were noted. Additional trochars were then inserted in the following locations 5 mm trocar in the epigastrium and 2 more 5 mm trochars along the right costal margin. The abdomen was inspected no abnormalities were found. The table is placed in reverse Trendelenburg position with the right side up. The adhesions between the gallbladder and omentum were lysed sharply. The gallbladder wall was very thick at the dome. The dome of the gallbladder was grasped with atraumatic grasper passed through the lateral port and retracted over the dome of the liver. Infundibulum was then grasped with atraumatic grasper through the midclavicular port and retracted to the right lower quadrant. This maneuver exposed Calot's triangle. The peritoneum overlying the gallbladder infundibulum was then incised and cystic duct and artery identified and circumferentially dissected. Small stab incision was made in the right upper quadrant to accommodate the Ranfac catheter was used for cholangiograms. The cholangiogram showed good filling of the common bile duct into the duodenum with no filling defects, good filling of the right and left bile ducts as well. The cystic duct and artery were then doubly clipped and divided close to the gallbladder. However there were still thick adhesions at the neck of the gallbladder thus decided to do a dome down technique and found a small portion of the posterior wall very adherent to gallbladder fossa, gallbladder was entered and stone was removed purulence bile was suctioned. The majority of the of the gallbladder was removed using electrocautery. The Erbe was used for hemostasis and coagulation of the remaining posterior gallbladder wall. The gallbladder then dissected from its peritoneal attachments by electrocautery. Hemostasis was checked and the gallbladder and contained stones were removed using the endoscopic retrieval bag through the umbilical port, after the umbilical port was enlarged to accommodate the large gallstone approximately 4 cm. The gallbladder is passed off table as specimen. The gallbladder fossa was copiously irrigated with saline and hemostasis obtained. There is no evidence of bleeding from the gallbladder fossa or cystic artery leakage of bile from the cystic duct stump. Secondary trochars removed under direct vision. No bleeding was noted the trocar sites. The laparoscope was withdrawn and umbilical trocar removed. The abdomen was allowed to collapse. The fascia of the 12 mm trocar was closed with 2 emxewd-wa-shheo 1 PDS suture. The skin was closed with sutures of 4-0 Monocryl and Steri-Strips. The orogastric tube was removed and the patient was extubated. The patient tolerated procedure well and was taken to the postanesthesia care unit in stable condition. - Complications none
[2020-02-07] MEDS: Bupivacaine Mpf 0.5% 30 ML VIAL (15:26)
--- NOTE | 2020-02-07 15:30 | GALL_PTH ---
PATIENT: YESSICA MARTINEZ LOC: MS3 U#:[id number] AGE/SX: 70/M ROOM: MS316 RE02/07/[address]: Dr. Kelsye Peters MD : 1950 BED: 1 DIS: 02/08/2020 SPEC #: [id number] RECD: 02/07/20 15:37 STATUS: EDUARDO RERuben #: [id number] FER: 02/07/20 15:[address]: Kelsey Peters DEPT: SURGICAL PATHOLOGY RECD BY: Ashlie Bentley ENTERED: 02/08/20 09:20 SP TYPE: THONG OSORIO DR: Dr. Lazarus Bey III, MD Tissues: Gallbladder, NOS Procedures: Surgery Specimen Level III HEADER OPERATION: Laparoscopic cholecystectomy with IOC PRE-OP DIAGNOSIS: Acute cholecystitis TISSUE SUBMITTED: Gallbladder MICROSCOPIC DIAGNOSIS Gallbladder, cholecystectomy: Acute and chronic cholecystitis and cholelithiasis. Reactive epithelial changes. One lymph node with reactive change and recent hemorrhage. SJ:lenny 02/09/20 MICROSCOPIC DESCRIPTION Slides are reviewed. GROSS DESCRIPTION Received is one container labeled with the patient's name and designated gallbladder. The specimen consists of a previously opened gallbladder measuring 6 x 4 x 2.2 cm. The external surface is smooth and glistening. Focally, it is granular, hemorrhagic and contains cautery artifact. The lumen of the gallbladder contains yellow-green mucoid bile. Present in the specimen container is an ovoid crystalline light argueta calculus measuring 4 cm in greatest dimension. The mucosa is bile-stained and without any mass lesions. The gallbladder wall averages 0.5 cm in thickness and is free of mass lesions. Cylinder Inspector sections of the gallbladder and the cystic duct at margin of resection are submitted in one cassette. / AM:lenny 02/08/20 TC:2 CPT: 79886
[2020-02-07] MEDS: Insulin Lispro 100 UNIT/ML INSULN.PEN SC (17:49)
[2020-02-07 17:50] LABS: Bedside Glucose 176 mg/dL (70-110)
[2020-02-07] MEDS: Lactated Ringers 1,000 ML 125 ML IV (17:51)
[2020-02-07] MEDS: 0.9% Normal Saline 1,000 ML 125 ML IV ×2 (17:52→20:56)
[2020-02-07 22:41] LABS: Bedside Glucose 132 mg/dL (70-110)
[2020-02-08 00:54] VITALS: BMI 37.2
[2020-02-08 03:44] VITALS: BP 155/86; PULSE 101; RESP 18; TEMP 37.6; O2SAT 95
[2020-02-08] MEDS: 0.9% Normal Saline 1,000 ML 125 ML IV (04:27)
[2020-02-08 04:54] VITALS: BMI 37.2
[2020-02-08] MEDS: Levothyroxine 175 MCG Tablet PO (06:04)
[2020-02-08 07:11] LABS: Bedside Glucose 149 mg/dL (70-110)
--- NOTE | 2020-02-08 07:49 | DCINST_ITS ---
Discharge Diet: Light diet - advance as tolerated, 1800 Calorie Control Diet Discharge Activity: May not drive while taking narcotic pain medications. May shower in (days): 1 Lifting Restrictions: no lifting > 20 lbs x 3 weeks Call your doctor if your incision/area has: Continuous Slow Oozing, Sudden Increased Bleeding, Increased Pain/ Swelling, Increased Redness, Foul Smelling Discharge, Swelling at the incision site Call your doctor if you observe: Fever of 101 or Higher Remove Dressing in (days):: 1 - steris will fall off in 7-10 days, if they don't ok to remove in 10 days Additional Instructions: Okay to take ibuprofen 400-600 mg PO q6hr PRN along with the hydrocodone/acetaminophen. Avoid Tylenol since there is already Tylenol in the hydrocodone/acetaminophen. Take all pain meds with food. Hydrocodone/acetaminophen can cause constipation recommend taking daily stool softener (i.e. Colace/docusate) while taking the pain meds. Recommend starting some MiraLAX 1-2 if no bowel movement. If still no bowel movement the following day recommend taking magnesium citrate half the bottle and waiting 4-6 hours if still no results take the other half the bottle. Allergies/Adverse Reactions: Allergies bee venom protein (honey bee) Allergy (Verified 02/07/20 07:37) Anaphylaxis Medications to take at Discharge Levothyroxine Sodium 175 mcg PO DAILY 04/19/18 Epi Pen (for allergic rxn) [Epi Pen] 0.3 mg IM X1 #1 syringe 06/01/18 Atorvastatin Calcium 40 mg PO DAILY 06/13/19 Lisinopril [Zestril] 10 mg PO DAILY 06/13/19 Metformin HCl 1,000 mg PO BID 06/13/19 Hydrocodone Bitart/Apap 5-325 [[place] 5MG-325MG] 1 - 2 tab PO Q6H PRN PRN 4 Days #20 tab 02/07/20 Sildenafil Citrate [Viagra] 50 mg PO PRN PRN 02/07/20 The following prescriptions were given: Hydrocodone Bitart/Apap 5-325 [[place] 5MG-325MG] 1 - 2 tab PO Q6H PRN PRN 4 Days #20 tab PRN Reason: Pain Transmission Status: Received by FOSTER MARCELO-1952 [facility] Primary Care Physician: Lazarus Bey III, MD [Primary Care Provider] - Test Results: Test results from this visit will be discussed in further detail at your follow- up appointment, if applicable. Please Follow Up With: Kelsey Peters MD - after 5PM/weekend call [phone] with any concerns When: call office for a f/u for phone/virtual visit in 2 weeks. Proposed Discharge Date: 02/08/20
--- NOTE | 2020-02-08 07:53 | PCM.PN.SRG ---
Subjective: Patient tolerating clears, ambulating in room, voiding well - Physical Exam Vitals/I&O's: Vital Signs Temp Pulse Resp BP Pulse Ox 99.7 F H 101 H 18 155/86 H 95 02/08/20 03:44 02/08/20 03:44 02/08/20 03:44 02/08/20 03:44 02/08/20 03:44 Oxygen Flow Rate (L/min) 2 Oxygen Delivery Method Room Air Weight: 259 lb 15.858 oz Body Mass Index (BMI) 37.2 Finger Stick Blood Glucose 192 Intake and Output for Last 24 Hours 02/06/20 02/07/20 02/08/20 23:59 23:59 23:59 Intake Total 1801.74 / 1801.74 1689.58 / 1689.58 Output Total 0 / 0 2049 / 2049 Balance 1801.74 / 1801.74 -360.42 / -360.42 General: Alert, Oriented x3, Cooperative, No apparent distress HEENT: Atraumatic Lungs: Normal air movement Cardiovascular: Regular rate Abdomen: Soft, Non-Distended, Tender - Tenderness incisions, appropriate, incisions dressed with op sites, no peritoneal signs Extremities: No clubbing, No cyanosis, No edema Neurological: Cranial nerves II-XII grossly intact Psych/Mental Status: Normal Affect Microbiology Past 72 Hours 02/07/20 09:00 Mucosa - Nasopharyngeal Coronavirus COVID-19 PCR - Final Laboratory Results 02/07/20 07:50: WBC 12.6 H, RBC 4.36 L, Hgb 13.5, Hct 40.3, MCV 92.4, MCH 31.0, MCHC 33.5, RDW Std Deviation 39.1, RDW Coeff of Michael 11.4 L, Plt Count 260, MPV 9.2, Immature Gran % (Auto) 0.600, Neut % (Auto) 80.9 H, Lymph % (Auto) 7.7 L, [place] % (Auto) 10.3 H, Eos % (Auto) 0.2, Baso % (Auto) 0.3, Absolute Neuts (auto) 10.2 H, Absolute Lymphs (auto) 0.97, Nucleated RBC % 0 02/07/20 07:50: Sodium 135 L, Potassium 4.2, Chloride 101, Carbon Dioxide 28.0, Anion Gap 6, BUN 27 H, Creatinine 1.51 H, Estim Creat Clear Calc 48.34, Est GFR (MDRD) Af Amer 59 L, Est GFR (MDRD) Non-Af 49 L, BUN/Creatinine Ratio 17.9, Glucose 218 H, Calcium 9.7, Total Bilirubin 1.30 H, AST 18, ALT 35, Alkaline Phosphatase 131 H, Total Protein 7.6, Albumin 3.8, Globulin 3.8, Albumin/Globulin Ratio 1.0, Lipase 126 02/07/20 07:52: Urine Color Yellow, Urine Clarity Clear, Urine pH 6.0, Ur Specific [place] 1.015, Urine Protein Negative, Urine Glucose (UA) 250 H, Urine Ketones Negative, Urine Occult Blood 10 H, Urine Nitrite Negative, Urine Bilirubin Negative, Urine Urobilinogen Normal, Ur Leukocyte Esterase Negative, Urine RBC 0 SEEN, Urine WBC 0 SEEN, Ur Squamous Epith Cells 0 SEEN, Urine Bacteria 0 SEEN, Urine Mucus 0 SEEN 02/07/20 09:00: COVID-19 ([facility]) Cancelled 02/07/20 12:49: POC Glucose 90 02/07/20 17:41: POC Glucose 176 H 02/07/20 22:35: POC Glucose 132 H 02/08/20 07:02: POC Glucose 149 H Current Medications Hydrocodone Bitart/Acetaminophen ([place] 5mg-325mg) 1 - 2 tablet PO Q4H PRN PRN PRN Reason: Pain Score 1-10/10 Atorvastatin Calcium (Lipitor) 40 mg PO DAILY YULIANA Hydromorphone HCl (Dilaudid Inj) 0.5 - 1 mg IV Q2H PRN PRN PRN Reason: Pain Score 1-10/10 Pantoprazole Sodium 40 mg/ (Sodium Chloride) 110 mls @ 330 mls/hr IV Q24 YULIANA Sodium Chloride () 250 mls @ 15 mls/hr IV .[id number] PRN PRN Reason: Saline Flush Last Infusion: 02/07/20 20:58 Dose: 0 mls/hr Documented by: Piperacillin Sod/Tazobactam (Sod 3.375 gm/ Sodium Chloride) 50 mls @ 12.5 mls/hr IV Q8H YULIANA Last Admin: 02/08/20 04:27 Dose: 12.5 mls/hr Documented by: Sodium Chloride () 1,000 mls @ 125 mls/hr IV .Q8H YULIANA Last Admin: 02/08/20 04:27 Dose: 125 mls/hr Documented by: Insulin Human Lispro (Humalog Kwikpen (Bkc)) 0 unit SC ACHS YULIANA; Protocol Last Admin: 02/08/20 07:03 Dose: Not Given Documented by: Levothyroxine Sodium (Synthroid) 175 mcg PO DAILY@0600 YULIANA Last Admin: 02/08/20 06:04 Dose: 175 mcg Documented by: Lisinopril (Zestril) 10 mg PO DAILY [facility] Ondansetron HCl (Zofran) 4 mg IV Q8H PRN PRN PRN Reason: NAUSEA Sodium Chloride () 10 - 40 ml IV UD PRN PRN Reason: SALINE FLUSH Medical Necessity - Tobacco Use Smoking Status: Former smoker Assessment/Plan All Active Problems History of hypertension (Acute) History of diabetes mellitus, type II (Acute) 70-year-old male status post laparoscopic cholecystectomy due to acute calculus cholecystitis 1. Advance patient's diet to diabetic diet, if tolerates okay to DC home once patient is able to ambulate in the halls and pain continues to be controlled. Kelsey Peters M.D. Pager: [phone] [facility] [address] [place] [address], [facility], [address] [place] [address] Office: [phone]
[2020-02-08 09:05] VITALS: BMI 37.2
[2020-02-08 09:17] VITALS: BP 116/72; PULSE 94; RESP 16; TEMP 36.9; O2SAT 96
[2020-02-08] MEDS: Atorvastatin Calcium 40 MG Tablet PO (09:25)
[2020-02-08] MEDS: Lisinopril 10 MG Tablet PO (09:25)
--- NOTE | 2020-02-08 11:32 | PHA.DC.MC ---
Pharmacy Service has performed discharge medication reconciliation and counseling for this patient. 1. HYDROCODONE/ACETAMINOPHEN 5/325MG PO 1-2 TABLETS Q6H PRN PAIN The patient's discharge medication list was reviewed for discrepancies and discrepancies were resolved. Home Medications Levothyroxine Sodium 175 mcg PO DAILY 04/19/18 Epi Pen (for allergic rxn) [Epi Pen] 0.3 mg IM X1 #1 syringe 06/01/18 Atorvastatin Calcium 40 mg PO DAILY 06/13/19 Lisinopril [Zestril] 10 mg PO DAILY 06/13/19 Metformin HCl 1,000 mg PO BID 06/13/19 Hydrocodone Bitart/Apap 5-325 [[place] 5MG-325MG] 1 - 2 tab PO Q6H PRN PRN 4 Days #20 tab 02/07/20 Sildenafil Citrate [Viagra] 50 mg PO PRN PRN 02/07/20 The patient was counseled on the following discharge medications and changes in medications for homegoing were reviewed. The Reason for Use, instructions for use, and potential side effects were reviewed for all new medications. The patient's questions regarding all of their medications were answered. The patient was able to verbally demonstrate an understanding of their discharge medications.
== END 2020-02-08 12:00 | disposition home or self-care (01) ==
LOC: ED 13:04 → MS3 13:05
PROVIDERS: Admitting Provider Surgery; Emergency Provider Emergency Medicine; PCP Family Medicine; Visit Provider Surgery
PROC: (CPT 47610; principal; 2020-02-07 15:10)
DX: K80.12 Calculus of gallbladder with acute and chronic cholecystitis without obstruction (principal); E11.9 Type 2 diabetes mellitus without complications; I10 Essential (primary) hypertension; E78.5 Hyperlipidemia, unspecified; Z85.850 Personal history of malignant neoplasm of thyroid; Z87.891 Personal history of nicotine dependence; Z79.899 Other long term (current) drug therapy; Z79.84 Long term (current) use of oral hypoglycemic drugs
CPT/HCPCS: 00790; 47563; 71045; 74300; 76000; 76705; 80053; 81001; 82962; 83690; 85025; 87635; 88304; 93005; 96361; 96365; 96366; 96375; 99218; 99251; 99285; G2023; J7030; J7040; J7050; J7120; A4216; G0378; G0463; J2405; U0002

== ENCOUNTER 2020-06-11 19:09 | Emergency (ER) | payer MEDICARE, SELFPAY ==
[2020-02-23 14:14] VITALS: BMI 37.2
[2020-06-11 19:10] VITALS: BP 140/87; PULSE 92; RESP 20; TEMP 36.4; O2SAT 98; BMI 37.2
--- NOTE | 2020-06-11 20:18 | RAD_ITS ---
STUDY: X-RAY - RIGHT SHOULDER REASON FOR EXAM: Male, 70 years old. Fall today pain in right shoulder. TECHNIQUE: 3 view(s) of the shoulder. COMPARISON: None. FINDINGS: Normal glenohumeral articulation. Normal acromioclavicular joint. Normal acromion. Normal humeral head and visualized proximal humerus. There is periarticular soft tissue calcification consistent with a calcific tendinitis. Normal visualized pulmonary apex. RAD/Shoulder min 2 Views IMPRESSION: No acute osseous injury is evident. Electronically Signed: Moshe Weiss MD at 20:32 EDT Tel , Service support ,
--- NOTE | 2020-06-11 20:44 | ED.VIS.GEN ---
History of Present Illness Chief Complaint: Upper Extremity Injury Informant: Patient Onset: Today Current Severity: Mild Maximum Severity: Moderate Narrative: Patient presents with pain to the right shoulder after a fall. He states he was trying to walk backwards when he tripped and fell, landing on his right shoulder. He is left-hand dominant. He denies striking his head or any other injury. He states he has minimal pain to the shoulder but his big complaint is he cannot lift it through the first 45 degrees of abduction. He denies paresthesias to the arm. He denies neck pain. - Past Medical History (1) High cholesterol Status: Chronic (2) History of diabetes mellitus, type II Status: Chronic (3) History of hypertension Status: Chronic Past Medical History - Allergies and Home Meds Allergies/Adverse Reactions: Allergies bee venom protein (honey bee) Allergy (Verified 02/07/20 07:37) Anaphylaxis Primary Care Physician: Lazarus Bey III, MD [Primary Care Provider] - Prior records reviewed: Yes Surgical History: - - Left thyroid lobectomy followed by right thyroid lobectomy due to thyroid cancer, additional neck excision for residual cancer. Lives: With Family Smoking Status: Former smoker - Family History Maternal Family History: Reports: No pertinent history Review of Systems General: Denies: Chills, Fever Eyes: Denies: Visual changes - bilaterally ENT: Denies: Bilateral ear pain Cardiovascular: Denies: Chest pain Respiratory: Denies: Dyspnea, Cough Gastrointestinal: Denies: Abdominal pain Musculoskeletal: Reports: Extremity Pain Neurological: Reports: Weakness. Denies: Parasthesia Hematologic: Denies: Easy bruising, Easy bleeding Allergy: Denies: Uticaria Physical Exam Vital Signs/Narrative: Vital Signs Temp Pulse Resp BP Pulse Ox 06/11/20 19:10 97.6 F L 92 20 H 140/87 H 98 Inital Vital Signs reviewed: Yes General: Well nourished, Well developed Head: Normocephalic ENT: Moist mucous membranes Neck: Supple, - - No C-spine tenderness. Cardiovascular: Regular rate, Regular rhythm Respiratory: No distress, CTA bilaterally Abdomen: Soft, Nontender Extremities: - - Mild tenderness on the lateral surface of the humeral head. No deformity noted. Increased weakness through the first 45 degrees of abduction. Strong distal pulses and normal sensation. Neurological: Alert, Oriented x3 Psychological: Normal affect Diagnostic/Tx/Re-eval Impressions Shoulder X-Ray 06/11/20 20:18 IMPRESSION: No acute osseous injury is evident. Electronically Signed: Moshe Weiss MD at 20:32 EDT Tel , Service support , 06/11/20 20:18 Shoulder min 2 Views [RAD] Stat - Medical Decision Making Patient declined anything for pain here. X-rays are unremarkable. I did explain to him that I concerned he has a tendon tear. He will be given a sling and referred to orthopedics for follow-up. ED Disposition - Plan for ED Patient: Disposition: Home or Assisted Living Diagnosis: Sprain of right shoulder Instructions: ED Shoulder Sprain Referrals: Alex Garcia MD [STAFF PHYSICIAN] - 3-5 Days if not improving
[2020-06-11 21:11] VITALS: PULSE 81; RESP 15; O2SAT 98
== END 2020-06-11 21:12 | disposition home or self-care (01) ==
PROVIDERS: Emergency Provider Emergency Medicine; PCP Family Medicine
DX: S43.401A Unspecified sprain of right shoulder joint, initial encounter (principal); W01.0XXA Fall on same level from slipping, tripping and stumbling without subsequent striking against object, initial encounter; E11.9 Type 2 diabetes mellitus without complications; E78.00 Pure hypercholesterolemia, unspecified; I10 Essential (primary) hypertension; Z85.850 Personal history of malignant neoplasm of thyroid; Z87.891 Personal history of nicotine dependence
CPT/HCPCS: 73030; 99283

== ENCOUNTER 2022-02-21 12:36 | Emergency (ER) | payer MEDICARE, SELFPAY ==
[2022-02-21 12:37] VITALS: BP 159/92; PULSE 100; RESP 17; TEMP 36.6; O2SAT 99; BMI 37.3
--- NOTE | 2022-02-21 13:22 | RAD_ITS ---
STUDY: X-RAY - LUMBAR SPINE REASON FOR EXAM: Male, 72 years old. Low back pain extending into the right leg TECHNIQUE: 3 view(s) of the lumbar spine were obtained. COMPARISON: None FINDINGS: There is straightening of the normal lumbar lordosis. There is no substantial scoliosis. There is a normal alignment of the vertebrae. There is diffuse demineralization with multi-level endplate spondylosis. There is multi-level degenerative disc disease with multi-level disc space narrowing. Facet arthropathy throughout the lumbar spine. There is no demonstrated fracture. There is atherosclerotic calcification of the abdominal aorta without a demonstrated aneurysm. RAD/Lumbar Spine 2 or 3 Views IMPRESSION: Multilevel degenerative disc disease and facet arthropathy. Electronically Signed: Mark Rico MD ([place]) at 13:51 EDT ,
[2022-02-21] MEDS: Ketorolac 60 MG/2 ML Vial IM (13:29)
--- NOTE | 2022-02-21 13:33 | EDS_ITS ---
HPI History of Present Illness Chief Complaint: Back Informant: patient Narrative Narrative: 72-year-old male presenting to the emergency room with a chief complaint of back pain. Patient states that he injured his back around the age of 32 but it flares for a few times a year for only for few days. He states that recently he began to have some back pain just developed along his belt line in the back. He was laying in bed and coughed and felt he felt something bad happened in his back. He notes he can find some positions that are more comfortable than others. He has not liked taking a lot of medicine so he has been trying some ibuprofen in the evening. He notes some decreased sensation over the lateral right leg. He has no red flag history. No saddle anesthesia loss of bowel or bladder control and no muscle weakness. PFSH PFS Medical History Diabetes High cholesterol HTN (hypertension) Home Medications levothyroxine 175 mcg PO DAILY 04/19/18 [History Last Taken Unknown] epinephrine 0.3 mg IM X1 #1 syringe 06/01/18 [Rx Last Taken Unknown] atorvastatin 40 mg PO DAILY 06/13/19 [History Last Taken Unknown] lisinopril 10 mg PO DAILY 06/13/19 [History Last Taken Unknown] metformin 1,000 mg PO BID 06/13/19 [History Last Taken Unknown] sildenafil 50 mg PO PRN PRN 02/07/20 [History Last Taken Unknown] ketorolac 10 mg PO Q8H PRN 5 Days #15 tab 02/21/22 [Rx Last Taken Unknown] methylprednisolone 4 mg PO UD #1 box 02/21/22 [Rx Last Taken Unknown] oxycodone-acetaminophen 1 tab PO Q6H PRN PRN 3 Days #12 tablet 02/21/22 [Rx Last Taken Unknown] Allergy/AdvReac Type Severity Reaction Status Date / Time bee venom protein (honey bee) Allergy Anaphylaxis Verified 02/21/22 12:38 Surgical History S/P laparoscopic cholecystectomy Social History (Updated 02/21/22 @ 13:[address] Jordan Mccabe DO) current gender identity: male Smoking Status: Former smoker ROS ROS ED Constitutional Constitutional ED: Denies chills, fever(s) or weight loss Eyes Eyes: Denies change in vision or diplopia ENT ENT ED: Denies ear pain, rhinorrhea or sore throat Cardiovascular Cardiovascular: Denies chest pain, orthopnea, palpitations or racing heartbeat Respiratory/Chest Respiratory/Chest: Denies cough, dyspnea or orthopnea Gastrointestinal Gastrointestinal: Denies abdominal pain, diarrhea, nausea or vomiting Genitourinary Genitourinary ED: Denies dysuria, hematuria or urinary frequency Musculoskeletal Musculoskeletal: Reports back pain; Denies arthralgias or myalgias Integumentary Denies abscess or rash Neurologic Neurologic: Reports paresthesias; Denies headache(s) or weakness Psychiatric Psychiatric: Denies anxiety, depression, suicidal ideation or suicidal thoughts Endocrine Endocrinology: Denies polydipsia, polyphagia or polyuria Allergic/Immunologic Allergic/Immunologic ED: Denies mouth swelling, tongue swelling or urticaria EXAM Physical Exam Const Vital Signs: 02/21/22 12:37 Temperature 97.8 F Temperature Source Temporal Pulse Rate 100 Respiratory Rate 17 Blood Pressure 159/92 H Blood Pressure Mean 114 Pulse Ox 99 Oxygen Delivery Method Room Air Positive well nourished, well developed and obese General Appearance ED: well developed Nutritional Appearance: obese HEENT Reports normocephalic, head/scalp atraumatic and moist mucous membranes Eyes PERRL and EOMs intact bilaterally Neck no lymphadenopathy, supple and no JVD Resp normal respiratory effort and clear to auscultation bilaterally Cardio regular rate, regular rhythm and no murmurs GI normal to inspection, nondistended, normoactive bowel sounds and non-tender Palpation: soft Back/Spine no CVA tenderness and normal ROM Extremity normal to inspection General Extremety ED: Negative for edema General Extremity: Negative for edema Neuro oriented x3 and CN's II-XII intact bilaterally Neuro Narrative: Patient reports decreased sensation in the lateral right leg near the L5 dermatome. There is no foot drop. Good muscle strength. Sensorium / Orientation: alert Motor Exam: strength 5/5 throughout Deep Tendon Reflexes: Rt Patellar (L4): 2+, Lt Patellar (L4): 2+, Rt Ankle (S1): 2+ and Lt Ankle (S1): 2+ Deep Tendon Reflexes Back: Rt Patellar (L4): 2+, Lt Patellar (L4): 2+, Rt Ankle (S1): 2+ and Lt Ankle (S1): 2+ Psych mental status grossly normal Mood & Affect: Negative for depressed or tearful Skin no rashes or lesions noted and no wounds MDM MDM MDM Narrative Medical decision making narrative: My interpretation of the plain films of the lumbar spine is multilevel degenerative disc disease and facet arthropathy. Patient's dermatome would suggest L5 as is the location of his pain. I will refer him to primary care or if he wishes to back surgery. I am going to write for some Medrol and as the patient is hesitant to take any medicines that might be addictive I can write for him to have some ketorolac. He will have a prescription for Percocet should his pain become worse. If he has any neurologic symptoms that we discussed he should return to the emergency. Radiography Diagnostic Testing: Clinical Impression(s) from Imaging Studies Lumbar Spine X-Ray 02/21/22 13:22 IMPRESSION: Multilevel degenerative disc disease and facet arthropathy. Electronically Signed: Mark Rico MD ([place]) at 13:51 EDT Reading Location ID and State: [address] [place] [address] , Service support , Discharge Plan Triage Chief Complaint: Back ED Provider: Jordan Mccabe Dx/Rx/DC Orders Clinical Impression: Lumbar radiculopathy, acute, Paresthesia of right leg Instructions: Leg Low Back Pain Poss Causes Prescriptions: New ketorolac 10 mg tablet 10 mg PO Q8H PRN (Reason: pain) 5 Days Qty: 15 RF: 0 oxycodone-acetaminophen [oxycodone-acetaminophen] 1 TABLET tablet 1 tab PO Q6H PRN PRN (Reason: Pain) 3 Days Qty: 12 RF: 0 methylprednisolone [methylprednisolone] 4 MG tablets,dose pack 4 mg PO UD Qty: 1 RF: 0 No Action levothyroxine 175 tablet 175 mcg PO DAILY RF: 0 epinephrine 0.3 MG syringe 0.3 mg IM X1 Qty: 1 RF: 0 atorvastatin 40 MG tablet 40 mg PO DAILY RF: 0 lisinopril 10 MG tablet 10 mg PO DAILY RF: 0 metformin 500 MG tablet 1,000 mg PO BID RF: 0 sildenafil 50 MG tablet 50 mg PO PRN PRN (Reason: SEX) RF: 0 Primary Care Provider: Joni Downing Referrals: Román Levi DO [STAFF PHYSICIAN] - (As needed for back surgery evaluation) Alfredo Iqbal DO [STAFF PHYSICIAN] - (As needed for spine surgery evaluation) Joni Downing MD [Primary Care Provider] - As soon as possible Disposition Disposition: Home, Self Care
== END 2022-02-21 14:21 | disposition home or self-care (01) ==
PROVIDERS: Emergency Provider Emergency Medicine; PCP Family Medicine; Visit Provider Emergency Medicine
DX: M51.16 Intervertebral disc disorders with radiculopathy, lumbar region (principal); E11.9 Type 2 diabetes mellitus without complications; Z87.891 Personal history of nicotine dependence; E78.00 Pure hypercholesterolemia, unspecified; M47.26 Other spondylosis with radiculopathy, lumbar region; R20.2 Paresthesia of skin; I10 Essential (primary) hypertension
CPT/HCPCS: 72100; 96372; 99282

== ENCOUNTER 2022-05-05 10:23 | Observation (INO) | payer MEDICARE, SELFPAY ==
--- NOTE | 2022-04-28 09:12 | EKG12_ITS ---
Test Reason : PREOP Blood Pressure : / mmHG Vent. Rate : 085 BPM Atrial Rate : 085 BPM P-R Int : 154 ms QRS Dur : 090 ms QT Int : 350 ms P-R-T Axes : 033 -02 042 degrees QTc Int : 416 ms Normal sinus rhythm Normal ECG Confirmed by MELANIE ROMERO, VIVIANA ([id number]), greeting card editor EVON SNOWDEN ([id number]) on 04/28/2022 2:09:19 PM Referred By: Alfredo Iqbal Confirmed By:VIVIANA NAVARRO MD
[2022-04-28 10:01] LABS: Absolute Lymphocyte Count 1.28 X10^3/uL (0.83-4.51); Absolute Neutrophil Count 4.8 X10^3/uL (2.0-7.7); Basophil# 0.04 X10^3/uL; Basophil% 0.6 % (0-1); Eosinophils% 2.8 % (0-5); Hematocrit 41.9 % (40-54); Hemoglobin 13.9 g/dL (13.0-16.5); Lymphocyte # 1.28 X10^3/ul (0.83-4.51); Lymphocyte % 17.9 % (19-41); Mean Corp Hgb Conc 33.2 g/dL (32-36); Mean Corpuscular Hgb 31.2 pg (27.0-32.0); Mean Corpuscular Volume 93.9 fL (80-94); Mean Platelet Vol. 9.7 fl (6.2-12.0); Monocyte# 0.76 X10^3/uL; Monocyte% 10.6 % (0-10); NRBC Flagged by Analyzer 0 % (0-5); Platelet Count 264 K/mm3 (150-450); RBC Distribution Width SD 41.4 fl (35.1-43.9); Red Blood Count 4.46 M/mm3 (4.6-6.2); White Blood Count 7.2 K/mm3 (4.4-11.0)
[2022-04-28 10:24] LABS: Hemoglobin A1c 5.8 % (3.8-5.6)
[2022-04-28 10:33] LABS: Anion Gap 5 (5-15); BUN 29 mg/dL (7-18); BUN/Creat Ratio 23.2 RATIO (10-20); Chloride 104 mmol/L (98-107); Creatinine, Serum 1.25 mg/dL (0.70-1.30); EST Glomerular Filtration Rate 61 mL/min (>60); Est Glom Filt Rate - Afr Amer 73 mL/min (>60); Glucose 100 mg/dL (74-106); Potassium 4.4 mmol/L (3.5-5.1); Sodium Level 139 mmol/L (136-145)
[2022-04-28 10:42] LABS: Magnesium 2.1 mg/dL (1.6-2.6)
[2022-04-28 11:14] LABS: HIV - WCH Non-Reactive (Nonreactive); Hepatitis B Surface Antibody Non-Reactive; Hepatitis C Antibody Non-Reactive (Nonreactive)
[2022-04-29 16:10] LABS: Hepatitis A AB, Total Negative (Negative)
--- NOTE | 2022-05-02 11:25 | HP.PCM_ITS ---
History and Physical Addendum MR#: [id number] Acct: [id number] Name:YESSICA SHEA Rep #: [id number] : 1950 ? ? Provider: Dr. Alfredo Iqbal DO Age/Sex:? 72/M ? ? [place] [facility] [email or web address]: Signed Intake Vital Signs ? Height 5 ft 10 in Weight: 260 lb BMI 37.3 BP 159/92 H Respiration 17 Pulse 100 Temp 97.8 F Temp Source Temporal Pulse Oximetry (%) 99 Intake Visit Reasons:?Lumbar spine Chief Complaint: acute cholecystitis Allergies bee venom protein (honey bee) Allergy (Verified 02/21/22 12:38) Anaphylaxis Medications levothyroxine 175 mcg tablet 175 mcg PO DAILY 04/19/18 [History Confirmed 04/16/22] epinephrine 0.3 mg/0.3 mL injection, auto-injector 0.3 mg (0.3 mL) IM X1 #1 syringe 06/01/18 [Rx Confirmed 04/16/22] atorvastatin 40 mg tablet 40 mg PO DAILY 06/13/19 [History Confirmed 04/16/22] metformin 500 mg tablet 1,000 mg PO BID 06/13/19 [History Confirmed 04/16/22] sildenafil 50 mg tablet 50 mg PO PRN PRN SEX 02/07/20 [History Confirmed 04/16/22] glimepiride 2 mg tablet 2 mg PO 04/16/22 [History Confirmed 04/16/22] losartan 50 mg tablet 50 mg PO 04/16/22 [History Confirmed 04/16/22] PFSH Medical History? Diabetes High cholesterol HTN (hypertension) Surgical History? S/P laparoscopic cholecystectomy Social History?(Updated 02/21/22 @ 13:[address] Jordan Mccabe DO) Smoking Status:? Former smoker HPI Lumbar spine Details: Parts of this documentation were recorded by a scribe, this documentation accurately reflects the service provided and the decisions made by me, Dr. Alfredo Iqbal DO 04/16/22 0821. YESSICA MARTINEZ is a 72 year old M NEW patient here today for? low back pain that radiates down the right leg. He states that he has been having this pain for about 5 weeks. He states that he was getting out of bed and coughed which started this pain. He states that he has a generalized low back pain worse on the right side which then radiates down the right leg into the foot. He states that when it initially happened his right leg became numb. He states that he did have burning over the top of his right foot. He states that the foot burning has subsided and he now has numbness over the lower right leg. He did attend 5-7 sessions of PT which did not help. He states that he did get relief from lumbar traction. Denies any hx of surgery or injections of the back. He has tried Ibuprofen and Tylenol for the pain which isnt very helpful. He has completed 1 Medrol dose pack which was not helpful. He was also given Percocet at the ED which was helpful when he took this. Most pleasant gentleman 9 years old has chief complaint of pain in his right buttocks that radiates down the right thigh and mostly down the right leg on the anterior lateral portion describing an L5 dermatome.? This started actually 8 weeks ago according to the patient.? It was as mentioned above by my scribe he coughed he started feeling it down his leg immediately.? He never had this before.? He is got more buttocks thigh and leg pain and numbness than he does pain in his low back.? 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 He denies any bowel or bladder dysfunction.? He denies history of explained weight loss night fever sweats or chills. On examination he has positive tension signs and positive straight leg raising on the right side.? He has EHL weakness on the right as compared to the left and anterior tibial weakness on the right as compared to the left I can overcome the anterior tib I cannot on the left.? He has 2+ patellar reflexes bilaterally.? He has a 1+ Achilles reflexes bilaterally.? He has no muscle atrophy per se.? He has no long tract signs.? Clonus is absent Babinski's are downgoing. I reviewed his MRI scan that demonstrates that he has a herniated disc at L4-5 on the right side consistent with his L5 dermatome symptoms. I think is reasonable options at this point after 8 weeks or for an epidural steroid injection as a simple symptomatic treatment or surgical intervention in the form of a laminectomy at L4-5 on the right.? Note that the MRI demonstrated also that none of the discs were normal.? Plain x-rays demonstrate that he has decreased disc spaces virtually all the lumbar levels.? I told him to go home and think about his options.? I will see him on a as needed basis. Coding Level of Care Code Off vis,new,level 3 Diagnoses Herniated nucleus pulposus, L4-5 right? M51.26
[2022-05-05] VITALS (14 sets, daily range): BP systolic 107–150; BP diastolic 61–113; PULSE 76–97; RESP 16–18; TEMP 36.3–37.2; O2SAT 97–100; BMI 39.2
[2022-05-05] MEDS: Lactated Ringers 1,000 ML 15 ML IV (05:50)
[2022-05-05] MEDS: Acetaminophen 500 MG Tablet 1000 MG PO (06:36)
[2022-05-05] MEDS: THROMBIN (RECOMBINANT) 20,000 UNIT VIAL 20000 UNIT TOPICAL (06:57)
[2022-05-05 07:30] LABS: Bedside Glucose 109 mg/dL (74-106)
[2022-05-05] MEDS: Cefazolin 2 GM in 0.9% Normal Saline 100 ML IV (07:30)
--- NOTE | 2022-05-05 07:30 | DISC_PTH ---
PATIENT: YESSICA MARTINEZ LOC: [facility]3 U#:[id number] AGE/SX: 72/M ROOM: IN311 RE05/05/[address]: Dr. Alfredo Iqbal DO : 1950 BED: 1 DIS: 05/07/2022 SPEC #: [id number] RECD: 05/05/22 10:57 STATUS: EDUARDO RERuben #: [id number] FER: 05/05/22 07:[address]: Alfredo Iqbal DEPT: SURGICAL PATHOLOGY RECD BY: Alejandra Crenshaw ENTERED: 05/05/22 13:09 SP TYPE: DISC OTHR DR: MD Joni Ash MD Tissues: Intervertebral disc, NOS Procedures: Surgery Specimen Level III HEADER OPERATION: ERAS, laminectomy lumbar L4-5 PRE-OP DIAGNOSIS: Herniated nucleus pulposus, L4-5 right TISSUE SUBMITTED: Disc L4-5 MICROSCOPIC DIAGNOSIS Intervertebral disc, L4-5, discectomy: Fragments of intervertebral disc with degenerative change. AM:lenny 05/06/2022 MICROSCOPIC DESCRIPTION Slides are reviewed. GROSS DESCRIPTION Received in fixative is one container labeled with the patient's name and designated disc L4-5. The specimen consists of multiple irregular fragments of argueta, indurated tissue that in aggregate measure 1.5 x 1 x 0.3 cm. The specimen is totally submitted in one cassette. / SJ:lenny 05/05/2022 TC:5 CPT: 50451
--- NOTE | 2022-05-05 08:30 | RAD_ITS ---
INDICATION: LAMINECTOMY L4-5, RIGHT EXAMINATION/TECHNIQUE: X-RAY - XR Spine Lumbar 1 View COMPARISON: None. FINDINGS: Single crosstable lateral view of the lumbar spine. Metallic device projects posterior to spine at the L4-L5 level. Diffuse lumbar endplate osteophyte formation and disc height loss with facet arthropathy. No fracture or acute compression deformity. Preserved lumbar lordosis without listhesis. RAD/Spine 1 View Any Level IMPRESSION: Radiographic support for laminectomy. Diffuse moderate lumbar spondylosis. Electronically Signed: Thong Nicole MD at 7:45 EDT ,
[2022-05-05] MEDS: Lactated Ringers 1,000 ML 100 ML IV ×2 (09:30→15:09)
--- NOTE | 2022-05-05 10:31 | PCM.OPRPT ---
Report of Operation Description of Surgical Findings:: Preoperative diagnosis: Herniated disc L4-5 with right L5 radiculopathy Postoperative diagnosis: The same Procedure: Lumbar hemilaminectomy L4-5 on the right with discectomy CPT code 75454 Surgeon: Dr. Iqbal surveyor instrument assistant: Giovana Zepeda NP Anesthesia: General endotracheal administered by [facility] Estimated blood loss: Less than 30 cc Drains: None Complications: None Procedure: Patient was taken to the OR where he was placed under general endotracheal anesthesia. A Yepez catheter was inserted. Neuro monitoring placed their leads on the patient. He was then placed in prone position on the Nima frame. After proper positioning with care to protect his bony prominences his genitalia his ulnar nerves of both elbows the brachial plexus bilaterally and the facial features the back was prepped and draped standard fashion. Made a longitudinal incision so centered over the area that I figured would be L4-5. Subcutaneous tissues were opened the size of the lengthens incision. I then opened the lumbar fascia to the right of the spinous processes and elevated the paravertebral muscles off the lamina for the top of the lamina of 5. An intraoperative x-ray was taken with a marker in place that confirmed that we were indeed at the L4-5 level. I then put a Rosalva retractor in place on the right side and began releasing ligamentum flavum off the underside of the lamina of L4 the laminectomy was carried out with 45 degree Kerrison rongeurs as well as medial facetectomy of the top of the L5 superior facet. It was then able to retract the dura and L5 nerve root medialward exposing the disc protrusion using a 15 blade I then cut into the protrusion remove some disc from within the disc space. This completely decompressed at the L5 nerve root also checked the foramen was found to be quite satisfactory with no pressure on it. Thorough irrigation was carried out every 10 to 50 minutes in the course of the case to prevent infection. It was so dry that we felt that we did not need a Hemovac drain. Amniotic membrane was placed over the laminotomy site and on the dura to prevent adhesions in the future. Gelfoam was placed over the top of that and closure was begun. We closed the lumbar fascia using [id number] suture with #1 Vicryl. Followed by closure of subcutaneous tissues in layers with both 0 Vicryl and 2-0 Vicryl in interrupted fashion. Skin clips were then applied to the skin. Sterile dressings were then applied the patient was then recovered in the OR moved to his hospital bed and taken to recovery in satisfactory condition. The end of operative summary on [place] this is Dr. Iqbal dictating.
[2022-05-05 12:50] LABS: Bedside Glucose 174 mg/dL (74-106)
[2022-05-05] MEDS: Ensure Surgery 237 ML LIQUID PO ×2 (13:08→16:43)
--- NOTE | 2022-05-05 13:56 | PCM.CONS.GEN ---
Assessment & Plan Assessment/Plan (1) Herniated nucleus pulposus, L4-5 right: PLAN: Plan The patient is a 72 y/o M w/ PMHx: Obesity, HTN, HLD, Former tobacco use, Diabetes mellitus type II, Hx Thyroid cancer s/p resection reported as left and eventually right thyroid lobectomy with additional neck excision for residual cancer who presents to the [facility] on 05/05/22 secondary to history of ongoing persistent lumbar back pain with right lower extremity associated radiculopathy as well as right lateral calf paresthesias depending on specific activity secondary to ongoing intractable discomfort despite failed conservative therapies and treatments for planned lumbar hemilaminectomy L4-5 on the right with discectomy per Dr. Iqbal. #1. Lumbar intractable pain with right lower extremity radiculopathy, persistent: Failed conservative therapies and treatments, admitted per Dr. Iqbal for planned 05/05/22 lumbar hemilaminectomy L4-5 on the right with discectomy, post-operative pain management, bowel regimen, DVT Prophylaxis, PT/OT/CM per Dr. Iqbal discretion. #2. Diabetes mellitus type II: May opt to hold oral home regimen if concern for imaging with contrast needs, ADA diet, accu checks w/ ISS. #3. Hypertension: Continue home regimen including losartan with alteration or hold parameters as needed, PRN hydralazine. #4. Hyperlipidemia: We will continue patient on statin therapy. #5. History of thyroid cancer: Status post prior resection initially left and eventually right thyroid lobectomy with additional neck surgery excision for residual cancer, continue patient home levothyroxine regimen, encourage continued outpatient follow-up and monitoring as previously arranged. #6. Obesity: Weight loss and lifestyle changes encouraged. #7. Former tobacco use: Encourage continued tobacco cessation. #8. DVT prophylaxis: SCDs, chemoprophylaxis per surgery discretion given recent operative intervention. HPI Consult Data Date of Consult: 05/05/22 HPI Narrative Reason for Consultation: Medical management. HPI Narrative: The patient is a 72 y/o M w/ PMHx: Obesity, HTN, HLD, Former tobacco use, Diabetes mellitus type II, Hx Thyroid cancer s/p resection reported as left and eventually right thyroid lobectomy with additional neck excision for residual cancer who presents to the [facility] on 05/05/22 secondary to history of ongoing persistent lumbar back pain with right lower extremity associated radiculopathy as well as right lateral calf paresthesias depending on specific activity secondary to ongoing intractable discomfort despite failed conservative therapies and treatments for planned lumbar hemilaminectomy L4-5 on the right with discectomy per Dr. Iqbal. Patient perioperatively had no concerning events per discussion with staff and patient. He reports that pain is currently controlled and denies any significant lumbar discomfort and states that prior right sided radiculopathy and paresthesias are completely absent. His only complaint is he does note some discomfort with the urine catheter. [facility] Medical History (Updated 04/21/22 @ 15:25 by Mally Larson) Cancer Diabetes Dietary restriction Former smoker High cholesterol History of steroid therapy History of thyroid cyst HTN (hypertension) Injury of back Leg cramps Neuropathy Thyroid disease Wears dentures Wears glasses Home Medications levothyroxine 175 mcg tablet 175 mcg PO DAILY 04/19/18 [History Last Taken 05/05/22] epinephrine 0.3 mg/0.3 mL injection, auto-injector 0.3 mg (0.3 mL) IM X1 #1 syringe 06/01/18 [Rx Last Taken 05/04/22] atorvastatin 40 mg tablet 40 mg PO DAILY 06/13/19 [History Last Taken 05/04/22] metformin 500 mg tablet 1,000 mg PO BID 06/13/19 [History Last Taken 05/04/22] sildenafil 50 mg tablet 50 mg PO PRN PRN SEX 02/07/20 [History Last Taken 05/04/22] glimepiride 2 mg tablet 2 mg PO DAILY 04/16/22 [History Last Taken 05/04/22] losartan 50 mg tablet 50 mg PO DAILY 04/16/22 [History Last Taken 05/05/22] cholecalciferol (vitamin D3) 125 mcg (5,000 unit) tablet (Vitamin D3) 125 mcg PO DAILY 04/21/22 [History Last Taken 05/04/22] Allergy/AdvReac Type Severity Reaction Status Date / Time bee venom protein (honey bee) Allergy Anaphylaxis Verified 05/05/22 06:13 Family History (Updated 05/05/22 @ 20:[address] Raquel Martinez MD) Mother Diabetes Father Cancer Surgical History (Updated 04/21/22 @ 15:25 by Mally Larson) History of lobectomy of thyroid History of lobectomy of thyroid Hx of hernia repair S/P laparoscopic cholecystectomy Social History (Updated 05/05/22 @ 20:[address] Raquel Martinez MD) household members: significant other Smoking Status: Former smoker how long ago did patient quit smoking: Quit 38 yrs ago, ( of his daughter), smoked 1ppd since 21 until quit. alcohol intake: never substance use type: does not use ROS ROS Narrative Admission Review of Systems: CONSTITUTIONAL: No weight loss, fever, chills, + weakness or fatigue. HEENT: Eyes: No visual loss, blurred vision, double vision or yellow sclerae. Ears, Nose, Throat: No hearing loss, sneezing, congestion, runny nose or sore throat. SKIN: + Recent lumbar surgery, incision intact, no marked drainage. CARDIOVASCULAR: No chest pain, chest pressure or chest discomfort, palpitations, edema, orthopnea, syncopal events. RESPIRATORY: No shortness of breath, cough or sputum, wheezing, hemoptysis. GASTROINTESTINAL: No anorexia, nausea, vomiting or diarrhea, abdominal pain, melena, BRBPR. GENITOURINARY: No dysuria, frequency, urgency or retention. NEUROLOGICAL: + Patient with prior history of lumbar pain with right-sided lower extremity radiculopathy and paresthesias, currently resolved. No headache, dizziness, syncope, paralysis, ataxia, change in bowel or bladder control, seizure. MUSCULOSKELETAL: + muscle, back pain, joint pain or stiffness. HEMATOLOGIC: No anemia, bleeding or bruising. LYMPHATICS: No enlarged nodes. No history of splenectomy. PSYCHIATRIC: No history of depression or anxiety. ENDOCRINOLOGIC: No reports of sweating, cold or heat intolerance. No polyuria or polydipsia. ALLERGIES: No history of asthma, hives, eczema or rhinitis. Physical Exam Narrative Physical Examination: General: Awake, alert, oriented x 3 and cooperative, seated upright in the medical surgical bed, no acute distress, only complaint is urinary catheter discomfort. Skin: Normal color, normal turgor, no icterus, no cyanosis, recent OR with dressings in place, no marked drainage. HEENT: AT/NC, EOMI, PERRLA, MMM, no carotid bruits or JVD noted. Lungs: CTA bilaterally, moderate effort, mild decrease BL bases, no rales, ronchi or wheezing. Heart: Regular rate and rhythm; no gallop, rub audible. Abdomen: Soft, obese, NTTP, ND, normal BS, no HSM. Extremities: No cyanosis, clubbing, or edema. Neurological: Patient awake, alert, oriented as noted, cognitive function intact; pupils equally reactive to light and accommodation, cranial nerves II-XII grossly normal, moving all 4 extremities, no paresthesias reported, strength moderately global decrease given recent interventions but no deficits. Psychiatric: Affect appears normal, no acute evidence of depressive or anxiety feelings. Lab / Micro Data Result Diagrams: 04/28/22 09:33 04/28/22 09:33 Labs: Laboratory Results - last 24 hr 05/05/22 06:23: POC Glucose 109 H 05/05/22 12:22: POC Glucose 174 H Charges/Coding Visit Charges Office Visits / Consults: 86564 OP Consult L4
[2022-05-05] MEDS: Cefazolin 1 GM/50 ML BAG IV ×2 (15:09→23:10)
[2022-05-05] MEDS: Mupirocin Ointment 22gm Tube 1 APPLIC TOPICAL ×2 (16:23→21:11)
[2022-05-05] MEDS: oxyCODONE 5 MG Tablet PO (16:24)
[2022-05-05] MEDS: Acetaminophen 325 MG Tablet 650 MG PO (16:24)
[2022-05-05] MEDS: metFORMIN HCl 1,000 MG Tablet 1000 MG PO (16:32)
[2022-05-05 16:50] LABS: Bedside Glucose 192 mg/dL (74-106)
[2022-05-05] MEDS: Insulin Lispro 100 UNIT/ML INSULN.PEN SC (21:10)
[2022-05-05] MEDS: Atorvastatin Calcium 40 MG Tablet PO (21:10)
[2022-05-05 23:56] LABS: Bedside Glucose 198 mg/dL (74-106)
[2022-05-06 01:00] VITALS: BP 155/83; PULSE 83; RESP 16; TEMP 37.4; O2SAT 100
[2022-05-06] MEDS: Acetaminophen 325 MG Tablet 650 MG PO ×2 (01:13→15:44)
[2022-05-06] MEDS: Lactated Ringers 1,000 ML 100 ML IV (01:46)
[2022-05-06] MEDS: Insulin Lispro 100 UNIT/ML INSULN.PEN SC ×2 (06:21→12:09)
[2022-05-06] MEDS: oxyCODONE 5 MG Tablet PO ×2 (06:22→15:45)
[2022-05-06] MEDS: Levothyroxine 175 MCG Tablet PO (06:22)
[2022-05-06 06:30] LABS: Absolute Lymphocyte Count 1.37 X10^3/uL (0.83-4.51); Absolute Neutrophil Count 9.1 X10^3/uL (2.0-7.7); Basophil# 0.02 X10^3/uL; Basophil% 0.2 % (0-1); Eosinophil# 0.02 X10^3/uL; Eosinophils% 0.2 % (0-5); Hematocrit 39.6 % (40-54); Hemoglobin 13.1 g/dL (13.0-16.5); Lymphocyte # 1.37 X10^3/ul (0.83-4.51); Lymphocyte % 11.2 % (19-41); Mean Corp Hgb Conc 33.1 g/dL (32-36); Mean Corpuscular Hgb 31.6 pg (27.0-32.0); Mean Corpuscular Volume 95.7 fL (80-94); Mean Platelet Vol. 10.1 fl (6.2-12.0); Monocyte# 1.58 X10^3/uL; NRBC Flagged by Analyzer 0 % (0-5); Neutrophil # 9.09 X10^3/uL (2.7-7.7); Neutrophil % 74.4 % (47-70); POSITIVE DIFFERENTIAL YES; Platelet Count 269 K/mm3 (150-450); RBC Distribution Width CV 12.1 % (11.6-14.6); RBC Distribution Width SD 42.3 fl (35.1-43.9); Red Blood Count 4.14 M/mm3 (4.6-6.2); White Blood Count 12.2 K/mm3 (4.4-11.0)
[2022-05-06 06:31] VITALS: BP 147/81; PULSE 81; RESP 16; TEMP 37; O2SAT 98
[2022-05-06 06:33] LABS: Differential Indicated SCAN CRITERIA MET
[2022-05-06 07:05] LABS: AST(SGOT) 20 U/L (15-37); Alanine Aminotransfer ALT/SGPT 27 U/L (16-61); Albumin, Serum 3.3 g/dL (3.2-5.0); Alkaline Phosphatase 88 U/L (45-117); Anion Gap 5 (5-15); BUN 29 mg/dL (7-18); Chloride 103 mmol/L (98-107); Creatinine, Serum 1.26 mg/dL (0.70-1.30); EST Glomerular Filtration Rate 60 mL/min (>60); Est Glom Filt Rate - Afr Amer 73 mL/min (>60); Estimated Creatinine Clearance 56.33 ml/min; Globulin 3.2 g/dL (2.2-4.2); Glucose 150 mg/dL (74-106); Potassium 4.2 mmol/L (3.5-5.1); Protein, Total 6.5 g/dL (6.4-8.2); Sodium Level 138 mmol/L (136-145)
--- NOTE | 2022-05-06 07:28 | PCM.PN.ORT ---
Subjective Subjective Mr. Forte is doing well on postop day #1. He reports that his leg pain is better on the right side. The back is sore of course. He was up once yesterday and could not go too far because of pain. He states that he does not feel too bad as long as he is not moving. Neurologically is intact in both lower extremities. Because of his pain level I suspect that he will have to be kept until tomorrow before discharge. Objective Data Objective Data Vital Signs: Vital Signs Temp Pulse Resp BP Pulse Ox O2 Del Method O2 Flow Rate 98.6 F 81 16 147/81 H 98 Room Air 1 05/06/22 06:31 05/06/22 06:31 05/06/22 06:31 05/06/22 06:31 05/06/22 06:31 05/06/22 06:31 05/06/22 04:51 Oxygen Flow Rate (L/min) 1 Oxygen Delivery Method Room Air Weight: 273 lb 5.971 oz Body Mass Index (BMI) 39.2 Intake & Output: Intake and Output for Last 24 Hours 05/04/22 05/05/22 05/06/22 23:59 23:59 23:59 Intake Total 2083.67 / 2083.67 0 / 0 Output Total 950 / 1900 2450 / 2450 Balance 1133.67 / 183.67 -2450 / -2450 Lab / Micro Data Result Diagrams: 05/06/22 05:08 05/06/22 05:08 Labs: Laboratory Results - last 24 hr 05/05/22 06:23: POC Glucose 109 H 05/05/22 12:22: POC Glucose 174 H 05/05/22 16:28: POC Glucose 192 H 05/05/22 21:05: POC Glucose 198 H 05/06/22 05:08: WBC 12.2 H, RBC 4.14 L, Hgb 13.1, Hct 39.6 L, MCV 95.7 H, MCH 31.6, MCHC 33.1, RDW Std Deviation 42.3, RDW Coeff of Michael 12.1, Plt Count 269, MPV 10.1, Immature Gran % (Auto) 1.000 H, Neut % (Auto) 74.4 H, Lymph % (Auto) 11.2 L, Stoddard % (Auto) 13.0 H, Eos % (Auto) 0.2, Baso % (Auto) 0.2, Absolute Neuts (auto) 9.1 H, Absolute Lymphs (auto) 1.37, Nucleated RBC % 0, Diff Path Review January05/06/22 05:08: Sodium 138, Potassium 4.2, Chloride 103, Carbon Dioxide 30.0, Anion Gap 5, BUN 29 H, Creatinine 1.26, Estim Creat Clear Calc 56.33, Est GFR (MDRD) Af Amer 73, Est GFR (MDRD) Non-Af 60, BUN/Creatinine Ratio 23.0 H, Glucose 150 H, Calcium 9.0, Total Bilirubin 1.00, AST 20, ALT 27, Alkaline Phosphatase 88, Total Protein 6.5, Albumin 3.3, Globulin 3.2, Albumin/Globulin Ratio 1.0 Micro: Microbiology 04/28/22 09:33 Swab (Method) Nasal Screen MRSA/MSSA - Final
--- NOTE | 2022-05-06 07:30 | PN.HOSP_ITS ---
Subjective Subjective Patient is a 72-year-old gentleman who underwent lumbar hemilaminectomy at L4-5 on the right with discectomy on account of herniated disc at L4-5 with right L5 radiculopathy Objective Data Objective Data Vital Signs: Vital Signs Temp Pulse Resp BP Pulse Ox O2 Del Method O2 Flow Rate 98.6 F 81 16 147/81 H 98 Room Air 1 05/06/22 06:31 05/06/22 06:31 05/06/22 06:31 05/06/22 06:31 05/06/22 06:31 05/06/22 06:31 05/06/22 04:51 Oxygen Flow Rate (L/min) 1 Oxygen Delivery Method Room Air Weight: 124 kg Body Mass Index (BMI) 39.2 Intake & Output: Intake and Output for Last 24 Hours 05/04/22 05/05/22 05/06/22 23:59 23:59 23:59 Intake Total 2083.67 / 2083.67 0 / 0 Output Total 950 / 1900 2450 / 2450 Balance 1133.67 / 183.67 -2450 / -2450 Lab / Micro Data Result Diagrams: 05/06/22 05:08 05/06/22 05:08 Labs: Laboratory Results - last 24 hr 05/05/22 06:23: POC Glucose 109 H 05/05/22 12:22: POC Glucose 174 H 05/05/22 16:28: POC Glucose 192 H 05/05/22 21:05: POC Glucose 198 H 05/06/22 05:08: WBC 12.2 H, RBC 4.14 L, Hgb 13.1, Hct 39.6 L, MCV 95.7 H, MCH 31.6, MCHC 33.1, RDW Std Deviation 42.3, RDW Coeff of Michael 12.1, Plt Count 269, MPV 10.1, Immature Gran % (Auto) 1.000 H, Neut % (Auto) 74.4 H, Lymph % (Auto) 11.2 L, Mercer % (Auto) 13.0 H, Eos % (Auto) 0.2, Baso % (Auto) 0.2, Absolute Neuts (auto) 9.1 H, Absolute Lymphs (auto) 1.37, Nucleated RBC % 0, Diff Path Review January05/06/22 05:08: Sodium 138, Potassium 4.2, Chloride 103, Carbon Dioxide 30.0, Anion Gap 5, BUN 29 H, Creatinine 1.26, Estim Creat Clear Calc 56.33, Est GFR (MDRD) Af Amer 73, Est GFR (MDRD) Non-Af 60, BUN/Creatinine Ratio 23.0 H, Glucose 150 H, Calcium 9.0, Total Bilirubin 1.00, AST 20, ALT 27, Alkaline Phos phatase 88, Total Protein 6.5, Albumin 3.3, Globulin 3.2, Albumin/Globulin Ratio 1.0 Micro: Microbiology 04/28/22 09:33 Swab (Method) Nasal Screen MRSA/MSSA - Final Physical Exam Narrative GENERAL: cooperative HEENT: Atraumatic; EYES; Anicteric, Normal Conjunctiva NECK; supple, normal thyroid, RESPIRATORY: Diminished to auscultation CARDIOVASCULAR: Regular S1 S2, GI: soft, normoactive bowel sounds, : No Renal angle tenderness; EXTREMITIES: No edema, no clubbing, MUSCULOSKELETAL: no muscle wasting NEURO: Awake; no lateralizing signs. SKIN: No Rash PSYCH; Flat affect Assessment & Plan Assessment/Plan (1) Herniated nucleus pulposus, L4-5 right: PLAN: Plan Patient is a 72-year-old gentleman who underwent lumbar hemilaminectomy at L4-5 on the right with discectomy on account of herniated disc at L4-5 with right L5 radiculopathy 1. Status post lumbar hemilaminectomy at L4-5 on the right with discectomy -on account of herniated disc at L4-5 with right L5 radiculopathy by Dr. Iqbal on 05/05/2022. Patient postoperative orders regarding pain management and PT OT addressed by primary service 2. Diabetes mellitus type II -patient's oral hypoglycemics held. Placed on long acting insulin, Accu-Cheks a.c. and at bedtime and covered with sliding scale insulin 3. Dyslipidemia -Patient is on statin therapy, continued at home dose 4. History of thyroid CA ? Status post resection. Currently on supplement therapy with levothyroxine 5. Class II obesity with BMI of 39.2 ? Weight loss advised 6. DVT prophylaxis ? Bilateral SCDs Charges/Coding Visit Charges Inpatient E&M: 63350 Subs Hosp L2
[2022-05-06 07:50] LABS: Bedside Glucose 158 mg/dL (74-106)
[2022-05-06 08:13] VITALS: O2SAT 96
[2022-05-06] MEDS: metFORMIN HCl 1,000 MG Tablet 1000 MG PO ×2 (09:23→16:27)
[2022-05-06] MEDS: Losartan Potassium 50 MG Tablet PO (09:24)
[2022-05-06] MEDS: Glimepiride 2 MG Tablet PO (09:24)
[2022-05-06] MEDS: Mupirocin Ointment 22gm Tube 1 APPLIC TOPICAL ×2 (09:24→21:35)
[2022-05-06] MEDS: Ensure Surgery 237 ML LIQUID PO ×3 (09:34→16:27)
[2022-05-06 10:00] VITALS: BP 146/84; PULSE 86; RESP 15; TEMP 36.9; O2SAT 99
--- NOTE | 2022-05-06 10:20 | CASEMGMT ---
RN CM Face to Face with patient for initial transition planning/care coordination assessment. RN CM introduced self and role at [facility]. Patient sitting in chair, alert and oriented. Patient willing to participate in assessment and is able to answer all questions appropriately. Care providers, pharmacy, and demographics verified. Patient wishes to discharge home, denies need for home health at this time. Patient states he has no further needs or concerns at this time. CM to follow for discharge planning needs that may arise. PCP: Chang Specialists: Rasheed, spinal ortho; Albert, electronic design engineer Trish Preferred Pharmacy: [facility] Insurance: [employer] Prescription Benefit: yes Living Will/HPOA: yes, [place] Forte, HPOA LNOK: Living Arrangements: Patient lives with in a single story home with 2 steps to enter the home. Patient states he was independent at home prior to surgery. Transportation: self, DME/HHC: Patient states he has raised toilet and walker at home. No previous HHC or SNF. Disposition Plan: Patient to discharge home with family support and follow-up plans in place. Haven TRIPLETT, RN, CM
[2022-05-06 11:46] LABS: Bedside Glucose 162 mg/dL (74-106)
[2022-05-06 13:05] LABS: Pathologist Review Reviewed
--- NOTE | 2022-05-06 15:39 | CASEMGMT ---
MATTHEW CM in to discuss [place] form with patient. RN CM explained [place] form, patient voiced understanding. Pt signed form and filed in chart. Pt provided with a copy of signed [place] form. Patient had no further questions or concerns at this time.
[2022-05-06 16:24] VITALS: BP 154/85; PULSE 101; RESP 16; TEMP 38.6; O2SAT 96
[2022-05-06 16:51] LABS: Bedside Glucose 138 mg/dL (74-106)
[2022-05-06 21:35] VITALS: BP 149/91; PULSE 100; RESP 16; TEMP 37.4; O2SAT 96
[2022-05-06] MEDS: Atorvastatin Calcium 40 MG Tablet PO (21:35)
[2022-05-06 22:40] LABS: Bedside Glucose 109 mg/dL (74-106)
[2022-05-07] MEDS: Acetaminophen 325 MG Tablet 650 MG PO (03:09)
[2022-05-07 03:30] VITALS: BP 157/94; PULSE 103; RESP 16; TEMP 36.9; O2SAT 94
[2022-05-07] MEDS: Levothyroxine 175 MCG Tablet PO (05:58)
[2022-05-07] MEDS: Insulin Lispro 100 UNIT/ML INSULN.PEN SC ×2 (05:59→11:18)
[2022-05-07 06:55] LABS: Bedside Glucose 181 mg/dL (74-106)
[2022-05-07 07:10] VITALS: O2SAT 94
--- NOTE | 2022-05-07 07:47 | PCM.PN.HOSP ---
Subjective Subjective Postoperative day 2 patient seen, pain is tolerable Objective Data Objective Data Vital Signs: Vital Signs Temp Pulse Resp BP Pulse Ox O2 Del Method O2 Flow Rate 98.4 F 103 H 16 157/94 H 94 Room Air 1 05/07/22 03:30 05/07/22 03:30 05/07/22 03:30 05/07/22 03:30 05/07/22 03:30 05/07/22 03:30 05/06/22 04:51 Oxygen Flow Rate (L/min) 1 Oxygen Delivery Method Room Air Weight: 124 kg Body Mass Index (BMI) 39.2 Intake & Output: Intake and Output for Last 24 Hours 05/05/22 05/06/22 05/07/22 23:59 23:59 23:59 Intake Total 2133.67 / 2133.67 823.33 / 823.33 Output Total 950 / 1900 3100 / 4275 2775 / 2775 Balance 1183.67 / 233.67 -2276.67 / -3451.67 -2775 / -2775 Lab / Micro Data Result Diagrams: 05/06/22 05:08 05/06/22 05:08 Labs: Laboratory Results - last 24 hr 05/06/22 05:08: Diff Path Review Reviewed 05/06/22 06:19: POC Glucose 158 H 05/06/22 11:23: POC Glucose 162 H 05/06/22 16:22: POC Glucose 138 H 05/06/22 21:33: POC Glucose 109 H 05/07/22 05:57: POC Glucose 181 H Micro: Microbiology 04/28/22 09:33 Swab (Method) Nasal Screen MRSA/MSSA - Final Physical Exam Narrative GENERAL: cooperative HEENT: Atraumatic; EYES; Anicteric, Normal Conjunctiva NECK; supple, normal thyroid, RESPIRATORY: Diminished to auscultation CARDIOVASCULAR: Regular S1 S2, GI: soft, normoactive bowel sounds, : No Renal angle tenderness; EXTREMITIES: No edema, no clubbing, MUSCULOSKELETAL: no muscle wasting NEURO: Awake; no lateralizing signs. SKIN: No Rash PSYCH; Flat affect Assessment & Plan Assessment/Plan (1) Herniated nucleus pulposus, L4-5 right: PLAN: Plan Patient is a 72-year-old gentleman who underwent lumbar hemilaminectomy at L4-5 on the right with discectomy on account of herniated disc at L4-5 with right L5 radiculopathy 1. Status post lumbar hemilaminectomy at L4-5 on the right with discectomy -on account of herniated disc at L4-5 with right L5 radiculopathy by Dr. Iqbal on 05/05/2022. Patient postoperative orders regarding pain management and PT OT addressed by primary service ? 05/07/2022 pain is tolerable patient has tolerated PT well so far. 2. Diabetes mellitus type II -patient's oral hypoglycemics held. Placed on long acting insulin, Accu-Cheks a.c. and at bedtime and covered with sliding scale insulin 9?8 07/17/2022 blood glucose levels relatively well controlled 3. Dyslipidemia -Patient is on statin therapy, continued at home dose 4. History of thyroid CA ? Status post resection. Currently on supplement therapy with levothyroxine 5. Class II obesity with BMI of 39.2 ? Weight loss advised 6. DVT prophylaxis ? Bilateral SCDs 7. Hypertension - Blood pressure controlled, home medications continued with dose adjustment as needed Charges/Coding Visit Charges Inpatient E&M: 90473 Subs Hosp L2
[2022-05-07] MEDS: metFORMIN HCl 1,000 MG Tablet 1000 MG PO (08:11)
[2022-05-07] MEDS: Losartan Potassium 50 MG Tablet PO (08:11)
[2022-05-07] MEDS: Mupirocin Ointment 22gm Tube 1 APPLIC TOPICAL (08:12)
[2022-05-07] MEDS: Glimepiride 2 MG Tablet PO (08:12)
[2022-05-07] MEDS: Ensure Surgery 237 ML LIQUID PO ×2 (08:15→11:18)
[2022-05-07 08:32] VITALS: BP 141/90; PULSE 93; RESP 15; TEMP 36.8; O2SAT 96
[2022-05-07 11:40] LABS: Bedside Glucose 174 mg/dL (74-106)
--- NOTE | 2022-05-07 12:54 | DCINST_ITS ---
Discharge Instructions Follow Up Care Test Results: Test results from this visit will be discussed in further detail at your follow- up appointment, if applicable. Discharge Plan Admission Admit Date/Time: 05/05/22 10:23 Primary Reason for Your Visit: back surgery Attending Provider: Alfredo Iqbal Primary Care Provider: Joni Downing Consulting Providers: Handy Mast ; Raquel Martinez ; Alfredo Iqbal ; Pranay Bautista Discharge Orders/Prescriptions Prescriptions: No Action glimepiride 2 mg tablet 2 mg PO DAILY losartan 50 mg tablet 50 mg PO DAILY Label Comments: take 1 tablet by mouth once daily levothyroxine 175 tablet 175 mcg PO DAILY Label Comments: epinephrine 0.3 MG syringe 0.3 mg IM X1 Qty: 1 0RF atorvastatin 40 MG tablet 40 mg PO DAILY metformin 500 MG tablet 1,000 mg PO BID sildenafil 50 MG tablet 50 mg PO PRN PRN (Reason: SEX) cholecalciferol (vitamin D3) [Vitamin D3] 125 mcg (5,000 unit) Tablet 125 mcg PO DAILY Referrals / Follow Up: Joni Downing MD [Primary Care Provider] - Disposition Disposition (needs filled in before D/C Order can be placed): Home, Self Care
--- NOTE | 2022-05-07 12:56 | PCM.DC.SUM ---
Providers Date of Admission: 05/05/22 Primary Care Physician: Joni Downing MD Attending Physician: This is discharge summary on [place] Forte. Admitted 2 days ago and underwent lumbar laminectomy the date of admission which was Thursday. He has been discharged today Thursday. He relates today that his leg pain is just about all gone. His back does not hurt much at all and he is taken nothing but Tylenol for pain. He states that he does not need any opioids. Illogically is intact. His dressing is dry. He was given instructions regarding going home. He is told that he can walk all he wants for now. He is told to remove the dressing on Thursday and start showering on Thursday. He already has an appointment to see me in the office. This is the end of discharge summary on Del Forte. This is Dr. Iqbal dictating. Consultations 05/05/22 10:55 Consult: Hospitalist Routine Consulting Provider: Raquel Martinez Reason for Consult: Medical Management EMERGENT Consult: No MD Notified: Yes Date Notified: 05/05/22 Time Notified: 13:43 Method of Notification: Text Reason For Visit: LUMBAR LAMINECTOMY L4-5 RIGHT Diagnosis Discharge Diagnosis (1) Herniated nucleus pulposus, L4-5 right: Status: Acute Code(s): M51.26 - Other intervertebral disc displacement, lumbar region Medications at Discharge Home Medications levothyroxine 175 mcg tablet 175 mcg PO DAILY 04/19/18 epinephrine 0.3 mg/0.3 mL injection, auto-injector 0.3 mg (0.3 mL) IM X1 #1 syringe 06/01/18 atorvastatin 40 mg tablet 40 mg PO DAILY 06/13/19 metformin 500 mg tablet 1,000 mg PO BID 06/13/19 sildenafil 50 mg tablet 50 mg PO PRN PRN SEX 02/07/20 glimepiride 2 mg tablet 2 mg PO DAILY 04/16/22 losartan 50 mg tablet 50 mg PO DAILY 04/16/22 cholecalciferol (vitamin D3) 125 mcg (5,000 unit) tablet (Vitamin D3) 125 mcg PO DAILY 04/21/22 Weight / BMI Weight Weight: 273 lb 5.971 oz Body Mass Index (BMI) 39.2 ABG / Lab / Microbiology Data Result Diagrams: 05/06/22 05:08 05/06/22 05:08 Laboratory: Laboratory Results - last 24 hr 05/06/22 05:08: Diff Path Review Reviewed 05/06/22 16:22: POC Glucose 138 H 05/06/22 21:33: POC Glucose 109 H 05/07/22 05:57: POC Glucose 181 H 05/07/22 11:16: POC Glucose 174 H Microbiology: Microbiology 04/28/22 09:33 Swab (Method) Nasal Screen MRSA/MSSA - Final Meaningful Use Info Meaningful Use Diagnoses (Choose all that apply): None applicable Discharge Plan Admission Admit Date/Time: 05/05/22 10:23 Primary Reason for Your Visit: back surgery Attending Provider: Alfredo Iqbal Primary Care Provider: Joni Downing Consulting Providers: Handy Mast ; Raquel Martinez ; Alfredo Iqbal ; Pranay Bautista Discharge Orders/Prescriptions Prescriptions: No Action glimepiride 2 mg tablet 2 mg PO DAILY losartan 50 mg tablet 50 mg PO DAILY Label Comments: take 1 tablet by mouth once daily levothyroxine 175 tablet 175 mcg PO DAILY Label Comments: epinephrine 0.3 MG syringe 0.3 mg IM X1 Qty: 1 0RF atorvastatin 40 MG tablet 40 mg PO DAILY metformin 500 MG tablet 1,000 mg PO BID sildenafil 50 MG tablet 50 mg PO PRN PRN (Reason: SEX) cholecalciferol (vitamin D3) [Vitamin D3] 125 mcg (5,000 unit) Tablet 125 mcg PO DAILY Referrals / Follow Up: Joni Downing MD [Primary Care Provider] - Disposition Disposition (needs filled in before D/C Order can be placed): Home, Self Care
[2022-05-07] MEDS: oxyCODONE 5 MG Tablet PO (13:46)
--- NOTE | 2022-05-07 14:16 | PHA.DC.MR ---
Pharmacy Service has performed discharge medication reconciliation for this patient. The patient's discharge medication list was reviewed for discrepancies and discrepancies were resolved. Home Medications levothyroxine 175 mcg tablet 175 mcg PO DAILY 04/19/18 epinephrine 0.3 mg/0.3 mL injection, auto-injector 0.3 mg (0.3 mL) IM X1 #1 syringe 06/01/18 atorvastatin 40 mg tablet 40 mg PO DAILY 06/13/19 metformin 500 mg tablet 1,000 mg PO BID 06/13/19 sildenafil 50 mg tablet 50 mg PO PRN PRN SEX 02/07/20 glimepiride 2 mg tablet 2 mg PO DAILY 04/16/22 losartan 50 mg tablet 50 mg PO DAILY 04/16/22 cholecalciferol (vitamin D3) 125 mcg (5,000 unit) tablet (Vitamin D3) 125 mcg PO DAILY 04/21/22
== END 2022-05-07 14:20 | disposition home or self-care (01) ==
LOC: MS3 05-06 07:21 → SDC 05-06 07:36 → MS3 05-06 07:36
PROVIDERS: Anesthesiology; Family Medicine; Admitting Provider Orthopaedic Surgery; PCP Family Medicine; Referring Provider Orthopaedic Surgery; Visit Provider Orthopaedic Surgery
PROC: (CPT 63030; principal; 2022-05-05 07:00)
DX: M51.16 Intervertebral disc disorders with radiculopathy, lumbar region (principal); E11.40 Type 2 diabetes mellitus with diabetic neuropathy, unspecified; M51.26 Other intervertebral disc displacement, lumbar region; E07.9 Disorder of thyroid, unspecified; E78.00 Pure hypercholesterolemia, unspecified; Z87.891 Personal history of nicotine dependence; M47.26 Other spondylosis with radiculopathy, lumbar region; I10 Essential (primary) hypertension; Z79.84 Long term (current) use of oral hypoglycemic drugs; Z79.899 Other long term (current) drug therapy; Z79.890 Hormone replacement therapy; E66.9 Obesity, unspecified; Z68.39 Body mass index [BMI] 39.0-39.9, adult
CPT/HCPCS: 63030; 00670; 36415; 72020; 80048; 80053; 82962; 83036; 83735; 84443; 85025; 86703; 86706; 86708; 86803; 87081; 88304; 93005; 96361; 96365; 96366; 97116; 97162; 97530; 99218; 99251; J7120; G0378; G0463; J2405; J3475